=== PATIENT | male | born 1965 | race Caucasian/White ===

== ENCOUNTER 2022-12-09 08:31 | Outpatient (RCR) | payer OTHER ==
[~2022-12-09 08:31] MED LIST: ACHD5005 PO; AMLO-250 PO; AMLO-251 PO; ASPI-999 PO; BETA1TAB PO; BLOO1EAC87 MC; CEPH500C PO; CLIN150C20 PO; CLOP75TA28 PO; CYAN100015 SL; DEXA4TAB PO; DOCU100C37 PO; DOCU100T2 PO; FURO20TA4 PO; HYDR-1231 PO; IBUP-2473 PO; INSU100I14 SQ; INSU100I88 SQ; LACT1CAP62 PO; LANC1COM6 MC; LEVE500T6 PO; LOSA100T58 PO; MECO10002 SL; METF-397 PO; NAPR220T66 PO; OLAN5TAB3 PO; OMEP-10 PO; OMEP20CA18 PO; OXYC-556 PO; PROBIOTIC; QUET25TA35 PO; [UNRECOGNIZED DRUG - CODE] MC; [UNRECOGNIZED DRUG - CODE] MC
== END 2022-12-13 | disposition home or self-care (01) ==
LOC: ONC 08:31 → MERGE 08:31
PROVIDERS: ATTEND Internal Medicine Hematology & Oncology
DX: Z51.0 Encounter for antineoplastic radiation therapy (principal); C64.9 Malignant neoplasm of unspecified kidney, except renal pelvis; I87.2 Venous insufficiency (chronic) (peripheral)
CPT/HCPCS: 77336; 77373; G0463

== ENCOUNTER 2022-12-09 11:40 | Observation (INO) | payer OTHER ==
[~2022-12-09] VITALS: Ht 175 cm; Wt 113.0 kg
[2022-12-09 12:15] LABS: BASOPHILS % (AUTO) 0 % (0-10); EOSINOPHILS % (AUTO) 0 % (0-10); HEMATOCRIT 39 % (40-54); HEMOGLOBIN 13.2 g/dL (13.3-17.7); LYMPHOCYTES # (AUTO) 1.1 10^3/uL (1.0-4.0); LYMPHOCYTES % (AUTO) 9 % (12-44); MEAN CORPUSCULAR HEMOGLOBIN 31 pg (25-34); MEAN CORPUSCULAR HGB CONC 34 g/dL (32-36); MEAN CORPUSCULAR VOLUME 91 fL (80-99); MONOCYTES # (AUTO) 0.8 10^3/uL (0.0-1.0); MONOCYTES % (AUTO) 6 % (0-12); NEUTROPHILS # (AUTO) 9.8 10^3/uL (1.8-7.8); NEUTROPHILS % (AUTO) 79 % (42-75); PLATELET COUNT 247 10^3/uL (130-400); WHITE BLOOD COUNT 12.4 10^3/uL (4.3-11.0)
[2022-12-09] MEDS ORDERED: dexAMETHasone INJ 10 MG/ML 1 ML VIAL IV ONE (12:15)
[2022-12-09 12:41] LABS: ALBUMIN 3.8 GM/DL (3.2-4.5); POTASSIUM 4.3 MMOL/L (3.6-5.0)
[2022-12-09 12:42] LABS: CALCIUM 9.3 MG/DL (8.5-10.1)
[2022-12-09 12:43] LABS: TOTAL PROTEIN 7.2 GM/DL (6.4-8.2)
[2022-12-09 12:45] LABS: BILIRUBIN,TOTAL 0.5 MG/DL (0.1-1.0)
[2022-12-09 12:47] LABS: CREATININE SERUM 0.97 MG/DL (0.60-1.30)
[2022-12-09 12:50] LABS: MAGNESIUM 2.2 MG/DL (1.6-2.4)
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
[2022-12-09 13:10] LABS: TSH (THYROID ANALYZER) 1.07 UIU/ML (0.35-4.94)
[2022-12-09] MEDS ORDERED: OLANZapine 5 MG ODT TABLET PO ONE (14:00)
[2022-12-09] MEDS ORDERED: ONDANSETRON INJECTION 4 MG/2 ML (SDV) IVP PRN (18:00)
[2022-12-09] MEDS ORDERED: GLYCOPYRROLATE INJ 0.2 MG/ML 2 ML VIAL IV PRN (18:00)
[2022-12-09] MEDS ORDERED: RT-Ipratropium/Albuterol NEB 3 ML VIAL INH PRN (18:00)
[2022-12-09] MEDS ORDERED: ACETAMINOPHEN 650 MG SUPPOSITORY PR PRN (18:00)
[2022-12-09] MEDS ORDERED: SALIVA SUBSTITUTE 60 ML SPRAY MM PRN (18:00)
[2022-12-09] MEDS ORDERED: PROMETHAZINE INJ 25 MG/ML VIAL IVP PRN (18:00)
[2022-12-09] MEDS ORDERED: LORazepam 1 MG TABLET SL PRN (18:00)
[2022-12-09] MEDS ORDERED: BISACODYL 10 MG SUPPOSITORY PR PRN (18:00)
[2022-12-09] MEDS ORDERED: ARTIFICIAL TEARS Ophth solution 0.4 ML UNIT DOSE OU PRN (18:00)
[2022-12-09] MEDS: WATER (STERILE) FOR INJ 10 ML BTL INJ SCH (18:35)
[2022-12-09] MEDS: ZIPRASIDONE INJECTION 20 MG VIAL IM PRN (18:35)
[2022-12-09 20:22] VITALS: BP 140/77
[2022-12-09] MEDS: inSUlin ASPART 1 UNIT/0.01 ML (PER UNIT) SC SCH ×2 (20:58)
[2022-12-09] MEDS: dexAMETHasone 4 MG TABLET PO SCH (21:00)
[2022-12-09] MEDS ORDERED: OLANZapine 5 MG ODT TABLET PO SCH (21:00)
[2022-12-09] MEDS: LevETIRAcetam 500 MG TABLET PO SCH (21:00)
[2022-12-09] MEDS ORDERED: inSUlin DETERMIR 1 UNIT/0.01 ML (CHARGE PER UNIT) SQ SCH (21:00)
[2022-12-09] MEDS ORDERED: QUEtiapine IMMEDIATE RELEASE 25 MG TABLET PO SCH (21:00)
[2022-12-10 00:41] VITALS: BP 169/91
[2022-12-10] MEDS: ZIPRASIDONE INJECTION 20 MG VIAL IM PRN ×3 (01:20→14:15)
[2022-12-10] MEDS: WATER (STERILE) FOR INJ 10 ML BTL INJ SCH (01:20)
[2022-12-10 03:14] VITALS: BP 168/89
[2022-12-10] MEDS: inSUlin ASPART 1 UNIT/0.01 ML (PER UNIT) SC SCH ×5 (06:37→16:12)
[2022-12-10 08:00] VITALS: BP 192/89
[2022-12-10] MEDS: dexAMETHasone 4 MG TABLET PO SCH ×3 (08:00→15:43)
[2022-12-10] MEDS: LevETIRAcetam 500 MG TABLET PO SCH (08:00)
[2022-12-10] MEDS ORDERED: ASPIRIN enteric coated 81MG TABLET PO SCH (09:00)
[2022-12-10] MEDS ORDERED: CLOPIDOGREL 75 MG TABLET PO SCH (09:00)
[2022-12-10] MEDS ORDERED: ALPRAZolam 0.5 MG TABLET PO SCH (09:00)
[2022-12-10] MEDS: morphine INJ 4 MG/ML 1 ML (VIAL/SYRINGE) IV PRN ×3 (09:00→15:09)
[2022-12-10] MEDS ORDERED: HALOPERIDOL INJECTION 5 MG/ML VIAL IM NR ×3 (10:00→15:15)
[2022-12-10 12:00] VITALS: BP 189/89
[2022-12-10] MEDS ORDERED: SCOPOLAMINE 1.5 MG PATCH TD NR (12:30)
[2022-12-10] MEDS ORDERED: LIDOCAINE UROJET 2% GEL 10 ML PKG TOP ONE (12:30)
[2022-12-10] MEDS ORDERED: HALOPERIDOL INJECTION 5 MG/ML VIAL IM PRN (14:30)
[2022-12-10 15:29] VITALS: BP 178/88
--- NOTE | 2022-12-10 16:31 | Short Stay Summary-Hospitalist ---
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 He has undergone radiation and chemotherapy. He has been on high dose dexamethasone. Despite the treatment his cancer has progressed. He saw his oncologist yesterday and they recommended hospice care. He returned home and appartently tried to harm himself. He tried to get his to leave the house but she would not. He tried to get into a gun safe but his son stopped him. Police were called and came to the home. They then brought him to the ER. He has denied suicidal ideation. Upon my exam, he has slurred speech. He repeatedly says he wants to go to home. He is labile and irritable. He keeps trying to stand up to leave. Source: patient, family Exam Limitations: clinical condition Date Seen 12/10/22 Time Seen by a Provider: 10:00 Attending Physician Cayetano Bradley MD PCP Admitting Physician: Roberto Miramontes MD Attending Physician: Roberto Miramontes MD Referring Physician Date of Admission Dec 09, 2022 at 17:44 Home Medications & Allergies Home Medications Reviewed patient Home Medication Reconciliation performed by pharmacy medication reconciliations geophysical data technician and/or nursing. Patients Allergies have been reviewed. Allergies Allergies Coded Allergies No Known Drug Allergies (Gptrvcvuoo38/12/23) Past Shhgjta-Yirdui-Joncmx Hx Patient Social History Tobacco Use?: No Substance use?: No Alcohol Use?: No Additional Alcohol Comments: UNABLE TO OBTAIN. Current Status Advance Directives: Unable to obtain Communicates: Verbally Primary Language: Upper Sorbian Preferred Spoken Language: Upper Sorbian Is interpretation needed?: No Past Medical History Brain, Lung, Kidney Did You Recieve Any Treatments: Yes What Type of Treatment Did You: Chemotherapy, Radiation, Surgical Intervention Family Medical History No Pertinent Family Hx Chart to be merged with previous chart. History reviewed from other charts. Review of Systems Constitutional: see HPI Psychiatric/Neurological: Anxiety, Depressed Physical Exam Physical Exam Vital Signs Vital Signs - First Documented 12/09/22 12/09/22 11:40 18:00 Temp 37.0 Pulse 80 Resp 16 B/P (MAP) 202/119 (146) Pulse Ox 93 O2 Delivery Room Air O2 Flow Rate 2.00 Capillary Refill : Less Than 3 Seconds Height, Weight, BMI Height: '" Weight: lbs. oz. kg; 36.89 BMI Method: General Appearance: Anxious, Mild Distress, Obese Respiratory: No Respiratory Distress, Crackles (Mid lung on right) Cardiovascular: Regular Rate, Rhythm, No Murmur Gastrointestinal: Non Tender, Soft, Distended Extremity: Normal Inspection Neurologic/Psychiatric: Alert, Depressed Affect, Other (irritable, labile, not easily redirectable) Skin: Cool, Pallor (feet) Results Results/Procedures Labs Laboratory Tests 12/09/22 12:06 Patient resulted labs reviewed. Short Stay Diagnosis Discharge Diagnosis-Short Stay Admission Diagnosis Metastatic renal cell carcinoma to the brain Final Discharge Diagnosis Metastatic renal cell carcinoma to the brain Conclusion Plan Metastatic renal cell carcinoma to the brain Anxiety Agitation T2DM with hyperglycemia Steroid induced hyperglycemia Poor prognosis Given Ativan, Haldol, Geodon, Morphine without significant improvement Discussed care with , Alycia, recommended [facility] hospice for symptom management [facility] accepted for [facility] Discharge to [facility] hospice for uncontrolled symptoms related to metastatic cancer Diagnosis/Problems Diagnosis/Problems (1) Metastatic renal cell carcinoma to brain Status: Acute (2) Anxiety Status: Acute (3) Agitation Status: Acute (4) T2DM (type 2 diabetes mellitus) Status: Acute Qualifiers: Qualified Codes: E11.65 - Type 2 diabetes mellitus with hyperglycemia; Z79.4 - vermin exterminator (current) use of insulin (5) Steroid-induced hyperglycemia Status: Acute (6) Poor prognosis Status: Acute ROBERTO MIRAMONTES MD Dec 10, 2022 16:31
== END 2022-12-10 16:03 | disposition other institution (70) ==
LOC: ER 11:42 → EDBD 11:42 → UNDOADMOB 17:44 → 4TH 17:44 → UNDODISOB 12-10 16:11
PROVIDERS: ADMIT Internal Medicine; ATTEND Internal Medicine
DX: C64.9 Malignant neoplasm of unspecified kidney, except renal pelvis (principal); C78.00 Secondary malignant neoplasm of unspecified lung; C79.31 Secondary malignant neoplasm of brain; R45.1 Restlessness and agitation; E11.65 Type 2 diabetes mellitus with hyperglycemia; F41.9 Anxiety disorder, unspecified
CPT/HCPCS: 80053; 82947 ×2; 83735; 84443; 85025; 86141; 93005; 96372 ×2; 96375; 96376; 99284; G0378; 36415; 96374

== ENCOUNTER 2022-12-10 14:44 | Inpatient (IN) | payer OTHER ==
[~2022-12-10] VITALS: Ht 175 cm; Wt 113.0 kg
[2022-12-10] MEDS ORDERED: HALOPERIDOL INJECTION 5 MG/ML VIAL IM PRN (16:15)
[2022-12-10] MEDS ORDERED: RT-Ipratropium/Albuterol NEB 3 ML VIAL INH PRN (16:15)
[2022-12-10] MEDS ORDERED: ARTIFICIAL TEARS Ophth solution 0.4 ML UNIT DOSE OU PRN (16:15)
[2022-12-10] MEDS ORDERED: BISACODYL 10 MG SUPPOSITORY PR PRN (16:15)
[2022-12-10] MEDS ORDERED: morphine INJ 4 MG/ML 1 ML (VIAL/SYRINGE) IV PRN (16:15)
[2022-12-10] MEDS ORDERED: PROMETHAZINE INJ 25 MG/ML VIAL IVP PRN (16:15)
[2022-12-10] MEDS ORDERED: SALIVA SUBSTITUTE 60 ML SPRAY MM PRN (16:15)
[2022-12-10] MEDS ORDERED: LIDOCAINE UROJET 2% GEL 10 ML PKG TOP ONE (16:15)
[2022-12-10] MEDS ORDERED: ONDANSETRON INJECTION 4 MG/2 ML (SDV) IVP PRN (16:15)
[2022-12-10] MEDS ORDERED: ACETAMINOPHEN 650 MG SUPPOSITORY PR PRN (16:15)
--- OUTSIDE RECORDS SUMMARY | 2022-12-10 16:27 | XMS REPORT | Encounter Summary ---
Author Author [facility] Organization [facility] Address Unknown Phone Unavailable Care Team Providers Care Joiner Apprentice Name Role Phone Cayetano Bradley MD PCP Reason for Visit * Auth/Cert (Routine) Specialty Diagnoses / Procedures Referred By Contac t Referred To Contact Diagnoses Lung nodule LAD (lymphadenopathy), hilar Paratracheal lymphadenopathy Lung nodule [R91.1] LAD (lymphadenopathy), hilar [R59.0] Paratracheal lymphadenopathy [R59.0] Procedures [facility] INCL FLUOR GDNCE DX W/CELL WASHG SPX IL BRONCHOSCOPY W/TRANSBRONCHIAL LUNG BX 1 LOBE IL BRONCHOSCOPY NEEDLE BX TRACHEA MAIN STEM&/[facility] 3/> NODE STATION/STRUX FLEXIBLE BRONCHOSCOPY DIAGNOSTIC WITH/ WITHOUT CELL WASHING - FLEXIBLE BRONCHOSCOPY WITH TRANSBRONCHIAL LUNG BIOPSY - FLEXIBLE - SINGLE LOBE BRONCHOSCOPY WITH TRANSBRONCHIAL NEEDLE ASPIRATION AND BIOPSY TRACHEA/ MAIN STEM/ LOBAR BRONCHUS - FLEXIBLE BRONCHOSCOPY WITH ENDOBRONCHIAL ULTRASOUND GUIDED TRANSTRACHEAL/ TRANSBRONCHIAL SAMPLING - 3 OR MORE MEDIASTINAL/ HILAR LYMPH NODE STATIONS/ STRUCTURE - FLEXIBLE Referral ID Status Reason Start Date Expiration Date Visits Re quested Visits Authorized [id number] 1 1 Encounter Details Date Type Department Care Team Description 10/01/2022 2:53 PM CDT Anesthesia Event Operating Room: [facility] [address] [facility] [address] [place] [address] Betsey Rivas MD [address] [facility] [place] [address] Anesthesia Record Procedure Summary Procedure Name Responsible Anesthesiologist Anesthesia Start Time Anesthesia Stop Time FLEXIBLE BRONCHOSCOPY DIAGNOSTIC WITH/ WITHOUT CELL WASHING - FLEXIBLE (Bron[place]) Betsey Rivas MD 10/01/22 1453 10/01/22 1543 Events Date Time Event Comment 10/01/2022 1450 1450 AN Equip Check 1452 Out of Pre Procedure 1453 Anes Start 1455 In Room 1455 An Start Data 1500 An Induction The patient was reevaluated immediately before moderate or deep sedation use and before anesthesia induction. 1504 An Intubation 1507 Anesthesia Ready 1508 Proc Start 1536 An Extubation 1540 an stop data 1543 An Stop I completed my SBAR handoff to the receiving nurse. Meds * Agents Name O2 N2O Inspired N2O * Blood No blood administrations on file. Lines, Drains, and Airways Type Details Placement Removal Epidural Catheter 07/13/17; 0718 (crecarmen britt via procedure documentation) 07/13/17 0718 by Jax Barrera DO Peripheral IV 10/01/22; 1435; R; Posterior; Hand; 20 G; One; 10/01/22; 1745 10/01/22 1435 by Nita Castillo, DARIAN 10/01/22 1745 by Nancie Middleton, DARIAN ETT 10/01/22; 1504; Ventilated by mask with oral airway (2); Video laryngoscopy, Stylet; Single-Lumen, Cuffed; ETT Size: 8.5mm; GlideScope; Blade Size: 4; Cricoid Pressure: No; Oral; 1-Full view of the glottis; 1 insertion attempt; Auscultation, ETCO2 Detector; Vol of Air in Cuff: 9 mL; Taped at Gums: 22 centimeters; Atraumatic. Dentition and mucosa unchanged.; 10/01/22; 1536 10/01/22 1504 by César Cuevas SRNA 10/01/22 1536 by César Cuevas SRNA documented in this encounter Social History Tobacco Use Types Packs/Day Years Used Date Smoking Tobacco: Never Smokeless Tobacco: Never Alcohol Use Standard Drinks/Week Comments Yes 0 (1 standard drink = 0.6 oz pure alcohol) 2-3 times weekly, vodka and cranberry Alcohol Use Answer Date Recorded Alcohol Use Yes Male: 9+ ounces (15+ Standard Drinks) per week T hreshold 0 Female: 4.8+ ounces (8+ Standard Drinks) per wee k Threshold Not on file Sex and Gender Information Value Date Recorded Sex Assigned at Male 09/23/2022 9:10 AM CDT Gender Identity Male 09/23/2022 9:10 AM CDT Sexual Orientation Not on file COVID-19 Exposure Response Date Recorded In the last 10 days, have yo u been in contact with someone who was confirmed or suspected to have Coronavirus/COVID-19? No / Unsure 10/01/2022 2:30 PM CDT documented as of this encounter Functional Status Functional Status Response Date of Assess ment Does the patient have a hearing impairment: No 07/29/2017 Does the patient have a visual impairment: No 07/29/2017 Does the patient have impaired ambulation: No 07/29/2017 Does the patient have an act ivity of daily living (ADL) impairment: No 07/29/2017 Does the patient have an ins trumental activity of daily living (IADL) impairment: No 07/29/2017 Cognitive Status Response Date of Assessm ent Does the patient have a cognitive impairment: No 07/29/2017 documented as of this encounter OR Notes * Anesthesia Postprocedure Evaluation - Tati Magdaleno MD - 10/01/2022 5:40 PM CDT Post-Anesthesia Evaluation Name: Kayode Milian : 1965 Age: 57 y.o. Sex: male Procedure Information Anesthesia Start Date/Time: 10/01/22 1450 Procedures: FLEXIBLE BRONCHOSCOPY DIAGNOSTIC WITH/ WITHOUT CELL WASHING - FLEXIBLE ([place]) BRONCHOSCOPY WITH TRANSBRONCHIAL LUNG BIOPSY - FLEXIBLE - SINGLE LOBE ([place]chus) BRONCHOSCOPY WITH TRANSBRONCHIAL NEEDLE ASPIRATION AND BIOPSY TRACHEA/ MAIN STEM/ LOBAR BRONCHUS - FLEXIBLE ([place]) BRONCHOSCOPY WITH ENDOBRONCHIAL ULTRASOUND GUIDED TRANSTRACHEAL/ TRANSBRONCHIAL SAMPLING - 3 OR MORE MEDIASTINAL/ HILAR LYMPH NODE STATIONS/ STRUCTURE - FLEXIBLE (Bronchus) Location: PULM ROOM / Main OR/Periop Surgeons: Negrito Pelaez MD Post-Anesthesia Vitals BP: 122/69 (10/01 1729) Temp: 36.7 C (98 F) (10/01 1729) Pulse: 68 (10/01 1729) Respirations: 12 PER MINUTE (10/01 1729) SpO2: 96 % (10/01 1729) SpO2 Pulse: 68 (10/01 1729) O2 Device: None (Room air) (10/01 1729) Vitals Value Taken Time BP 122/69 10/01/22 1730 Temp 36.7 C (98 F) 10/01/22 173 Pulse 68 10/01/220 Respirations 12 PER MINUTE 10/01/221729 SpO2 96 % 10/01/221729 O2 Device None (Room air) 10/01/221729 ABP ART BP Post Anesthesia Evaluation Note Evaluation location: Pre/Post Patient participation: recovered; patient participated in evaluation Level of consciousness: alert Pain score: 0 Pain management: adequate Hydration: normovolemia Temperature: 36.0C - 38.4C Airway patency: adequate Perioperative Events Post-op nausea and vomiting: no PONV Postoperative Status Cardiovascular status: hemodynamically stable Respiratory status: spontaneous ventilation Follow-up needed: none Perioperative Events There were no known notable events for this encounter. Associated attestation - Ross Frankel MD - 10/04/2022 6:55 AM CDT ATTESTATION Post-Anesthesia Evaluation Attestation: I reviewed and agree the indicated post- anesthesia care wasprovided. I have reviewed tomlinson portions of the indicated post anesthesia care. I have examined the patient's vitals, physical status, and complications and agree with what is documented. Staff name: Ross Frankel MD Date: 10/04/2022 * Anesthesia Preprocedure Evaluation - Betsey Rivas MD - 10/01/2022 2:09 PM CDT Images from the original note were not included. Anesthesia Pre-Procedure Evaluation Name: Kayode Milian : 1965 Age: 57 y.o. Sex: male Procedure Date: 10/01/2022 Procedure: Procedure(s): FLEXIBLE BRONCHOSCOPY DIAGNOSTIC WITH/ WITHOUT CELL WASHING - FLEXIBLE BRONCHOSCOPY WITH TRANSBRONCHIAL LUNG BIOPSY - FLEXIBLE - SINGLE LOBE BRONCHOSCOPY WITH TRANSBRONCHIAL NEEDLE ASPIRATION AND BIOPSY TRACHEA/ MAIN STEM/ LOBAR BRONCHUS - FLEXIBLE BRONCHOSCOPY WITH ENDOBRONCHIAL ULTRASOUND GUIDED TRANSTRACHEAL/ TRANSBRONCHIAL SAMPLING - 3 OR MORE MEDIASTINAL/ HILAR LYMPH NODE STATIONS/ STRUCTURE - FLEXIBLE Physical Assessment Vital Signs (last filed in past 24 hours): BP: 168/123 (10/01 1425) Temp: 36.5 C (97.7 F) (10/02 1415) Pulse: 75 (10/01 1425) Respirations: 15 PER MINUTE (10/01 1425) SpO2: 96 % (10/01 1425) O2 Device: None (Room air) (10/01 1425) SpO2 Pulse: 76 (10/01 1425) Height: 175.3 cm (5' 9") (10/02 1415) Repeat BP 199/96 Patient History No Known Allergies Current Medications Medication Directions acetaminophen (TYLENOL) 325 mg tablet Take 2 tablets by mouth every 4 hours as needed for Pain. amLODIPine (NORVASC) 5 mg tablet Take 5 mg by mouth daily. cetirizine (ZYRTEC) 10 mg tablet Take 10 mg by mouth daily. lisinopril (PRINIVIL; ZESTRIL) 10 mg tablet Take 10 mg by mouth daily. losartan(+) (COZAAR) 100 mg tablet Take 100 mg by mouth daily. omeprazole DR(+) (PRILOSEC) 20 mg capsule Take 20 mg by mouth daily before breakfast. Social History Socioeconomic History Marital status: Tobacco Use Smoking status: Never Smokeless tobacco: Never Substance and Sexual Activity Alcohol use: Yes Comment: 2-3 times weekly, vodka and cranberry Drug use: No Medical History: Diagnosis Date Acid reflux Hypertension Renal mass, right Ulcer of esophagus Surgical History: Procedure Laterality Date OPEN RIGHT RADICAL NEPHRECTOMY (MIDLINE) Right 07/13/2017 Performed by Gil Liu MD at [facility] OR FLEXIBLE CYSTOSCOPY N/A 07/13/2017 Performed by Gil Liu MD at [facility] OR OPEN REPAIR HERNIA UMBILICAL WITH MESH N/A 07/13/2017 Performed by Johnny Alvarez MD at [facility] OR Review of Systems/Medical History Patient summary reviewed Nursing notes reviewed Pertinent labs reviewed PONV Screening: Non-smoker and Hx PONV/motion sickness History of anesthetic complications (PONV) No family history of anesthetic complications Airway - negative Pulmonary Lung nodule, paratracheal/hilar LAD Pt snores, denies PND or orthopnea. No formal sleep study. reports episodes of apnea up to 15 seconds. Denies day time drowsiness. Cardiovascular Exercise tolerance: >4 METS (Pt is able to climb 2 flights of stairs without CP or dyspena. ) Beta Keri therapy: No Beta blockers within 24 hours: n/a Hypertension (Lisinopril and Norvasc), well controlled Hyperlipidemia (recently dx. ) Orthopnea Deneis CP, SYKES, palpitations, syncope, PND or orthopnea. GI/Hepatic/Renal GERD (on PPI), well controlled Liver disease (hepatic steatosis per CT 04/2017): Renal disease (right renal mass s/p nephrectomy 2017): prior nephrectomy Umbilical hernia H/o esophageal ulcer ~15 years ago. 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 Musculoskeletal Back pain (low back ) Arthritis (hands ): Endocrine/Other Malignancy (R RCC s/p nephrectomy; brain lesions recently irradiated): Obesity Constitution - negative Physical Exam Airway Findings Mallampati: III TM distance: <3 FB Neck ROM: full Mouth opening: good Airway patency: adequate Comments: Thick neck Dental Findings: Poor dentition and increased risk for dental injury; pt advised Comments: Multiple broken teeth, including lower R molar, upper L molar Cardiovascular Findings: Negative Rhythm: regular Rate: normal Pulmonary Findings: Negative Breath sounds clear to auscultation. Abdominal Findings: Obese Abdomen soft Neurological Findings: Alert and oriented x 3 Constitutional findings: No acute distress Diagnostic Tests Hematology: Lab Results Component Value Date HGB 14.6 01/09/2018 HCT 41.8 01/09/2018 PLTCT 351 01/09/2018 WBC 11.0 01/09/2018 MCV 96.8 01/09/2018 MCH 33.7 01/09/2018 MCHC 34.8 01/09/2018 MPV 7.4 01/09/2018 RDW 13.0 01/09/2018 General Chemistry: Lab Results Component Value Date NA 132 07/10/2018 K 4.2 07/10/2018 CL 100 07/10/2018 CO2 25 07/10/2018 GAP 7 07/10/2018 BUN 18 07/10/2018 CR 1.2 07/10/2018 CR 1.19 07/10/2018 GLU 217 07/10/2018 CA 9.1 07/10/2018 ALBUMIN 3.9 07/10/2018 TOTBILI 0.4 07/10/2018 Coagulation: Lab Results Component Value Date PTT 34.3 06/20/2017 INR 1.0 06/20/2017 Anesthesia Plan ASA score: 3 Plan: general Induction method: intravenous NPO status: acceptable Informed Consent Anesthetic plan and risks discussed with patient. Use of blood products discussed with patient Blood Consent: consented Plan discussed with: anesthesiologist, SCIENTIST ENGINEER, SRNA and surgeon/proceduralist. PAC Plan Alerts documented in this encounter Plan of Treatment Not on file documented as of this encounter Visit Diagnoses * Addendum Note - Betsey Rivas MD - 10/01/2022 5:56 PM CDT Addendum created 10/01/221755 by Betsey Rivas MD Review and Sign - Ready for Procedure documented in this encounter Administered Medications Inactive Administered Medications Medication Order MAR Action Action Date Dose Rate Site artificial tears (PF) single dose ophthalmic solution Both Eyes, INTRA-PROCEDURE MED, Starting on Tue10/01/22 at 1504, Until Tue10/01/22 at 1545, Anesthesia Intra-op Given 10/01/2022 3:04 PM CDT 2 drops dexamethasone sodium phosphate (DECADRON PHOSPHATE) injection Intravenous, INTRA-PROCEDURE MED, Starting on Tue10/01/22 at 1514, Until Tue10/01/22 at 1545, Anesthesia Intra-op Given 10/01/2022 3:14 PM CDT 4 mg fentaNYL citrate PF (SUBLIMAZE) injection Intravenous, INTRA-PROCEDURE MED, Starting on Tue10/01/22 at 1500, Until Tue10/01/22 at 1545, Anesthesia Intra-op Given 10/01/2022 3:00 PM CDT 50 mcg lidocaine (PF) injection Intravenous, INTRA-PROCEDURE MED, Starting on Tue10/01/22 at 1500, Until Tue10/01/22 at 1545, Anesthesia Intra-op Given 10/01/2022 3:00 PM CDT 100 mg midazolam (VERSED) injection Intravenous, INTRA-PROCEDURE MED, Starting on Tue10/01/22 at 1455, Until Tue10/01/22 at 1545, Anesthesia Intra-op Given 10/01/2022 2:55 PM CDT 2 mg ondansetron HCL (PF) (ZOFRAN (PF)) injection Intravenous, INTRA-PROCEDURE MED, Starting on Tue10/01/22 at 1514, Until Tue10/01/22 at 1545, Anesthesia Intra-op Given 10/01/2022 3:14 PM CDT 4 mg propofoL (DIPRIVAN) infusion 100 mL, Intravenous, INTRA-PROCEDURE MED(CONT), Starting on Tue10/01/22 at 1500, Until Tue10/01/22 at 1545, Anesthesia Intra-op Dose/Rate Change 10/01/2022 3:20 PM CDT 50 mcg/kg/min 35.52 mL/hr documented in this encounter Additional Health Concerns Assessment Noted Time A fall risk assessment has been complete d for the patient 10/01/2022 2:46 PM CDT documented as of this encounter Care Teams Joiner Apprentice Relationship Specialty Start Date End Date Cayetano Bradley MD [address] [place] [id number] PCP - General Family Medicine 10/01/22 documented as of this encounter
--- OUTSIDE RECORDS SUMMARY | 2022-12-10 16:27 | XMS REPORT | Encounter Summary ---
Author Author [facility] Organization [facility] Address Unknown Phone Unavailable Care Team Providers Care Copy Clerk Name Role Phone Cayetano Bradley MD PCP Reason for Visit * Reason Onset Date Comments Results 10/05/2022 Encounter Details Date Type Department Care Team Description 10/05/2022 Telephone Pulmonology: [facility] [address], [address] [id number] Xavi Ye MD [address] [place], [place] [id number] Results Social History Tobacco Use Types Packs/Day Years [...] No 07/29/2017 documented as of this encounter Miscellaneous Notes * Telephone Encounter - Xavi Ye MD - 10/05/2022 9:07 AM CDT Called Mr. Milian at 10/05/22 0900 regarding results of lung 4R FNA w/ renal cancer. Mr. Milian is established with Dr. Bandar MD (medical oncologist) and has an appointment tomorrow at 230pm. Answered all questions. documented in this encounter Plan of Treatment Not on file documented as of this encounter Visit Diagnoses Not on filedocumented in this encounter Additional Health Concerns Assessment Noted Time A fall risk assessment has been complete d for the patient 10/01/2022 2:46 PM CDT documented as of this encounter Care Teams Copy Clerk Relationship Specialty Start Date End Date Cayetano Bradley MD [address] [place] [phone] PCP - General Family Medicine 10/01/22 documented as of this encounter
--- OUTSIDE RECORDS SUMMARY | 2022-12-10 16:27 | XMS REPORT | Encounter Summary ---
Author Author [facility] Organization [facility] Address Unknown Phone Unavailable Care Team Providers Care New Car Sales Manager Name Role Phone Cayetano Bradley MD PCP Reason for Referral * Radiology Services (Routine) - New Request Specialty Diagnoses / Procedures Referred By Contac t Referred To Contact Radiology Diagnoses PVD (peripheral vascular disease) (HCC) Procedures VAS US NONINVASIVE LOWER EXT PVR Radha Martin APRN-NP [id number], [address] [place] [phone] Referral ID Status Reason Start Date Expiration Date V isits Requested Visits Authorized [id number] New Request 11/29/2022 11/30/2023 1 1 Reason for Visit * Radiology Services (Routine) - New Request Specialty Diagnoses / Procedures Referred By Contac t Referred To Contact Radiology Diagnoses PVD (peripheral vascular disease) (HCC) Procedures VAS US NONINVASIVE LOWER EXT PVR Radha Martin APRN-NP [id number], [address] [place] [address] Referral ID Status Reason Start Date Expiration Date V isits Requested Visits Authorized [id number] New Request 11/29/2022 11/30/2023 1 1 Encounter Details Date Type Department Care Team Description 11/30/2022 9:50 AM CDT - 11/30/2022 11:59 PM CDT [facility] [address] [place] [phone] Radha Martin, REVENUE SETTLEMENTS ADMINISTRATOR-SKEIN INSPECTOR [address], [address] [place] [phone] Discharge Disposition: Home or Self Care Social History Tobacco Use Types Packs/Day Years Used Date Smoking Tobacco: Never Smokeless Tobacco: Never Alcohol Use Standard Drinks/Week Comments Yes 0 (1 standard drink = 0.6 oz pure alcohol) 2-3 times weekly, vodka and cranberry PHQ-2 Answer Date Recorded PHQ-2 Score 0 11/30/2022 Alcohol Use Answer Date Recorded Alcohol Use Yes Male: 9+ ounces (15+ Standard Drinks) per week T hreshold 0 Female: 4.8+ ounces (8+ Standard Drinks) per wee k Threshold Not on file Sex and Gender Information Value Date Recorded Sex Assigned at Male 09/23/2022 9:10 AM CDT Gender Identity Male 09/23/2022 9:10 AM CDT Sexual Orientation Not on file documented as of this encounter Functional Status Functional Status Response Date of Assess ment Does the patient have a hearing impairment: No 11/30/2022 Does the patient have a visual impairment: No 11/30/2022 Does the patient have impaired ambulation: No 11/30/2022 Does the patient have an act ivity of daily living (ADL) impairment: No 11/30/2022 Does the patient have an ins trumental activity of daily living (IADL) impairment: No 11/30/2022 Cognitive Status Response Date of Assessm ent Does the patient have a cognitive impairment: No 11/30/2022 documented as of this encounter Medications at Time of Discharge Medication Sig Dispensed Refills Start Date End Date acetaminophen (TYLENOL) 325 mg tablet Take 2 tablets by mouth every 4 hours as needed for Pain. 0 07/16/2017 aspirin EC (ASPIR-LOW) 81 mg tabletIndications:PVD (peripheral vascular disease) (HCC) Take one tablet by mouth daily. 90 tablet 3 11/30/2022 BD ULTRA-FINE SHORT PEN NEEDLE 31 gauge x 5/16" pen needle 0 10/20/2022 cetirizine (ZYRTEC) 10 mg tablet Take one tablet by mouth daily. 0 clopiDOGreL (PLAVIX) 75 mg tabletIndications:PVD (peripheral vascular disease) (HCC) Take one tablet by mouth daily. 90 tablet 3 11/30/2022 dexAMETHasone (DECADRON) 4 mg tablet Take one tablet by mouth. Take with food. 0 furosemide (LASIX) 20 mg tablet 0 11/22/2022 HYDROcodone/acetaminophe n (NORCO) 5/325 mg tablet 0 11/26/2022 ibuprofen (ADVIL) 200 mg tablet Take one tablet by mouth every 6 hours as needed for Pain. Take with food. 0 insulin aspart (U-100) (NOVOLOG FLEXPEN U-100 INSULIN) 100 unit/mL (3 mL) PEN 0 10/20/2022 levETIRAcetam (KEPPRA) 500 mg tablet 0 11/22/2022 lisinopril (PRINIVIL; ZESTRIL) 10 mg tablet Take one tablet by mouth daily. 0 losartan(+) (COZAAR) 100 mg tablet Take one tablet by mouth daily. 0 metFORMIN (GLUCOPHAGE) 500 mg tablet 0 11/22/2022 OLANZapine (ZYPREXA) 5 mg tablet [address](+) (PRILOSEC) 20 mg capsule Take one capsule by mouth daily before breakfast. 0 ONETOUCH DELICA PLUS LANCET 33 gauge 0 10/19/2022 documented as of this encounter Discharge Disposition Disposition Code Departure Means Destination Home or Self Intermediate documented in this encounter Plan of Treatment Not on file documented as of this encounter Procedures Procedure Name Priority Date/Time Associated Diagnosis Comments VAS US NONINVASIVE LOWER EXT PVR Routine 11/30/2022 12:02 PM CDT PVD (peripheral vascular disease) ([facility]) documented in this encounter Results * VAS US NONINVASIVE LOWER EXT PVR (11/30/2022 12:02 PM CDT) Anatomical Region Laterality Modality Lower Extremity Ultrasound 11/30/2022 12:0 2 PM CDT Impressions 11/30/2022 12:02 PM CDT Right: Analog waveforms are triphasic at the common femoral, superficial femoral, popliteal, posterior tibial and dorsalis pedis arteries. PPG tracing is biphasic at the great toe. Ankle/brachial index is 1.21. Toe/brachial index is 1.10. No previous with which to compare. Left: Analog waveforms are triphasic at the common femoral, superficial femoral, and popliteal arteries. Analog waveforms are monophasic at the posterior tibial and dorsalis pedis arteries. PPG tracing is monophasic at the great toe. Ankle/brachial index is 0.47. Toe/brachial index is 0.28. No previous with which to compare. Recommendations: Would consider conventional angiogram or CT angiogram to better determine the severity of the stenosis as clinically indicated. Narrative 11/30/2022 12:02 PM CDT Conclusions: There is no indication of significant arterial insufficiency in the right lower extremity. Ankle/brachial indices and monophasic analog waveforms indicate severe arterial insufficiency at the left tibial level. Procedure Note Grisel Maher MD - 11/30/2022 Conclusions: There is no indication of significant arterial insufficiencyin the right lower extremity. Ankle/brachial indices and monophasic analog waveforms indicate severearterial insufficiency at the left tibial level. IMPRESSION Right: Analog waveforms are triphasic at the common femoral, superficialfemoral, popliteal, posterior tibial and dorsalis pedis arteries. PPGtracing is biphasic at the great toe. Ankle/brachial index is 1.21.Toe/brachial index is 1.10. No previous with which to compare. Left: Analog waveforms are triphasic at the common femoral, superficialfemoral, and popliteal arteries. Analog waveforms are monophasic at theposterior tibial and dorsalis pedis arteries. PPG tracing is monophasic atthe great toe. Ankle/brachial index is 0.47. Toe/brachial index is 0.28.No previous with which to compare. Recommendations: Would consider conventional angiogram or CT angiogram tobetter determine the severity of the stenosis as clinically indicated. Radha Martin REVENUE SETTLEMENTS ADMINISTRATOR-SKEIN INSPECTOR US ORDERABLES documented in this encounter Visit Diagnoses Diagnosis PVD (peripheral vascular disease) (HCC) Peripheral vascular disease, unspecified documented in this encounter Additional Health Concerns Assessment Noted Time A fall risk assessment has been complete d for the patient 11/30/2022 10:17 AM CDT PHQ-2 Depression Total Score: 0 12/01/19 10:17 AM CDT documented as of this encounter Care Teams New Car Sales Manager Relationship Specialty Start Date End Date Cayetano Bradley MD [address] [place] [phone] PCP - General Family Medicine 10/01/22 documented as of this encounter
--- OUTSIDE RECORDS SUMMARY | 2022-12-10 16:27 | XMS REPORT | Encounter Summary ---
Author Author [facility] Organization [facility] Address Unknown Phone Unavailable Care Team Providers Care Chest Painting And Sealing Supervisor Name Role Phone Cayetano Bradley MD PCP Reason for Visit * Reason Comments New Patient PVD Encounter Details Date Type Department Care Team Description 11/30/2022 11:00 AM CDT Office Visit [facility]: [facility] [id number] [place] [address] Radha Martin, COLOR GRINDER-MANAGER SAFE [address] [place] [address] PVD (peripheral vascular disease) (HCC) (Primary Dx); Atheroembolism of foot, left (HCC); Metastatic renal cell carcinoma, unspecified laterality (HCC); Primary hypertension; Hyperlipidemia, unspecified hyperlipidemia type; Diabetic vasculopathy (HCC) Social History Tobacco Use Types Packs/Day Years Used Date Smoking Tobacco: Never Smokeless Tobacco: Never Tobacco Cessation:Counseling Given: Not Answered Alcohol Use Standard Drinks/Week Comments Yes 0 [...] on file documented as of this encounter Last Filed Vital Signs Vital Sign Reading Time Taken Comments Blood Pressure 133/84 11/30/2022 10:53 AM CDT Pulse 67 11/30/2022 10:53 AM CDT Temperature 37 C (98.6 F) 11/30/2022 10:52 AM CDT Respiratory Rate - - Oxygen Saturation - - Inhaled Oxygen Concentration - - Weight 112.9 kg (249 lb) 11/30/2022 10:52 AM CDT Height 175.3 cm (5' 9") 11/30/2022 10:52 AM CDT Body Mass Index 36.77 11/30/2022 10:52 AM CDT documented in this encounter Functional Status Functional Status Response [...] No 11/30/2022 documented as of this encounter Ordered Prescriptions Prescription Sig Dispensed Refills Start Date End Da te clopiDOGreL (PLAVIX) 75 mg tabletIndications:PVD (peripheral vascular disease) (HCC) Take one tablet by mouth daily. 90 tablet 3 11/30/2022 aspirin EC (ASPIR-LOW) 81 mg tabletIndications:PVD (peripheral vascular disease) (HCC) Take one tablet by mouth daily. 90 tablet 3 11/30/2022 documented in this encounter Progress Notes * Radha Martin, COLOR GRINDER-MANAGER SAFE - 11/30/2022 11:00 AM CDT Date of Service: 11/30/2022 Chief Complaint Patient presents with New Patient PVD History of Present Illness This is a 57-year-old male with recent history of diabetes, history of hypertension, metastatic renal cell carcinoma and peripheral vascular disease. He reports that about 2 months ago ( 09/11/22 ER visit at [facility]), he was suffering left foot swelling andhis left great toe became exquisitely painful. The toe became discolored and then he had discoloration to the other toes of the left foot. It was very painful until about a week ago and has since resolved. On November 05, 2022, he had an arterial ultrasound of his left lower leg and was found tohave monophasic flow in the dorsalis pedis artery on the left with no evidence of blood flow in the posterior tibial artery at the ankle. At that point, he was encouraged to go to the emergency roomand specifically to the emergency room at for heparinization, CTA of the abdomen and pelvis withrunoff and vascular surgery consult. He declined to go to the emergency room and instead requestedthe vascular surgery consult. He came in today for bilateral lower extremity ABIs with segmental pressures. He had an SALLY on the right of 1.21 with a TBI of 1.10. He had triphasic arterial waveforms on the right. On the left, he had an SALLY of 0.47 with a TBI of 0.28. He had triphasic arterial waveforms through the popliteal artery and had monophasic waveforms in the posterior tibial and dorsalis pedisarteries. As previously stated, at least since a week ago, he has had no more pain in the left great toe or other toes of the left foot. He denies chest pain and shortness of breath. He denies fever and chills. He denies any lateralizing TIA or strokelike symptoms and specifically denies symptoms of claudication when he walks. He has no complaints of pain in either foot. He has no history of coronary artery intervention, bypass grafting, pacemaker or defibrillator implantation. He has no history of stroke. He has had 7 episodes of radiation therapy for brain mets.He has 1 tomorrow. On , he is due to get a Port-A-Cath for chemotherapy administration. Since he started dexamethasone another medications to treat his metastatic cancer, his blood sugar has gone "way up". He says he has 1 kidney and it is functioning well at this point in time. He does not smoke. He is not on any antiplatelet or anticoagulant agents and he is not on statin therapy. Medical History: Diagnosis Date Acid reflux Cancer of kidney (HCC) Diabetes mellitus (HCC) HTN (hypertension) Hypertension Lymphadenopathy Metastatic renal cell carcinoma (HCC) Obesity Renal mass, right Seizure (HCC) Ulcer of esophagus Surgical History: Procedure Laterality Date OPEN RIGHT RADICAL NEPHRECTOMY (MIDLINE) Right 07/13/2017 Performed by Gil Liu MD at [facility] OR FLEXIBLE CYSTOSCOPY N/A 07/13/2017 Performed by Gil Liu MD at [facility] OR OPEN REPAIR HERNIA UMBILICAL WITH MESH N/A 07/13/2017 Performed by Johnny Alvarez MD at [facility] OR FLEXIBLE BRONCHOSCOPY DIAGNOSTIC WITH/ WITHOUT CELL WASHING - FLEXIBLE N/A 10/01/2022 Performed by Negrito Pelaez MD at [facility] OR BRONCHOSCOPY WITH TRANSBRONCHIAL LUNG BIOPSY - FLEXIBLE - SINGLE LOBE N/A 10/01/2022 Performed by Negrito Pelaez MD at [facility] OR BRONCHOSCOPY WITH TRANSBRONCHIAL NEEDLE ASPIRATION AND BIOPSY TRACHEA/ MAIN STEM/ LOBAR BRONCHUS - FLEXIBLE N/A 10/01/2022 Performed by Negrito Pelaez MD at [facility] OR BRONCHOSCOPY WITH ENDOBRONCHIAL ULTRASOUND GUIDED TRANSTRACHEAL/ TRANSBRONCHIAL SAMPLING - 3 ORMORE MEDIASTINAL/ HILAR LYMPH NODE STATIONS/ STRUCTURE - FLEXIBLE N/A 10/01/2022 Performed by Negrito Pelaez MD at [facility] OR Allergies: No Known Allergies Medication List: acetaminophen (TYLENOL) 325 mg tablet Take 2 tablets by mouth every 4 hours as needed for Pain. aspirin EC (ASPIR-LOW) 81 mg tablet Take one tablet by mouth daily. BD ULTRA-FINE SHORT PEN NEEDLE 31 gauge x 5/16" pen needle cetirizine (ZYRTEC) 10 mg tablet Take one tablet by mouth daily. clopiDOGreL (PLAVIX) 75 mg tablet Take one tablet by mouth daily. dexAMETHasone (DECADRON) 4 mg tablet Take one tablet by mouth. Take with food. furosemide (LASIX) 20 mg tablet HYDROcodone/acetaminophen (NORCO) 5/325 mg tablet ibuprofen (ADVIL) 200 mg tablet Take one tablet by mouth every 6 hours as needed for Pain. Takewith food. insulin aspart (U-100) (NOVOLOG FLEXPEN U-100 INSULIN) 100 unit/mL (3 mL) PEN levETIRAcetam (KEPPRA) 500 mg tablet lisinopril (PRINIVIL; ZESTRIL) 10 mg tablet Take one tablet by mouth daily. losartan(+) (COZAAR) 100 mg tablet Take one tablet by mouth daily. metFORMIN (GLUCOPHAGE) 500 mg tablet OLANZapine (ZYPREXA) [address](+) (PRILOSEC) 20 mg capsule Take one capsule by mouth daily before breakfast. RONALDO PATTERSON PLUS LANCET 33 gauge Social History: reports that he has never smoked. He has never used smokeless tobacco. He reports current alcohol use. He reports that he does not use drugs. History reviewed. No pertinent family history. Review of Systems Vitals: 11/30/22 1052 11/30/22 1053 BP: 132/85 133/84 BP Source: Arm, Right Upper Arm, Left Upper Pulse: 67 67 Temp: 37 C (98.6 F) TempSrc: Oral Weight: 112.9 kg (249 lb) Height: 175.3 cm (5' 9") Body mass index is 36.77 kg/m. Physical Exam Vitals and nursing note reviewed. Exam conducted with a plant operations worker present. Constitutional: General: He is not in acute distress. Appearance: Normal appearance. He is well-developed and well-groomed. He is morbidly obese. He is not ill-appearing or diaphoretic. HENT: Head: Normocephalic. Eyes: General: Right eye: No discharge. Left eye: No discharge. Neck: Vascular: No carotid bruit. Trachea: Trachea and phonation normal. No tracheal deviation. Comments: He has a very broad fleshy neck Cardiovascular: Rate and Rhythm: Normal rate and regular rhythm. Pulses: Radial pulses are 2+ on the right side and 2+ on the left side. Femoral pulses are 2+ on the right side and 2+ on the left side. Popliteal pulses are 2+ on the right side. Dorsalis pedis pulses are detected w/ Doppler on the right side and detected w/ Doppler on the leftside. Posterior tibial pulses are detected w/ Doppler on the right side and detected w/ Doppler on the left side. Heart sounds: Normal heart sounds. Pulmonary: Effort: Pulmonary effort is normal. No respiratory distress. Breath sounds: Rhonchi present. Abdominal: General: Abdomen is protuberant. Tenderness: There is no abdominal tenderness. Comments: His bilateral groins are clean and dry . Musculoskeletal: General: Normal range of motion. Cervical back: Normal range of motion and neck supple. Right lower le+ Edema present. Left lower le+ Edema present. Right foot: Normal range of motion. No deformity. Left foot: Normal range of motion. No deformity. Feet: Right foot: Skin integrity: Skin integrity normal. No ulcer, blister, skin breakdown or erythema. Toenail Condition: Right toenails are normal. Left foot: Toenail Condition: Left toenails are normal. Comments: He has duskiness and discoloration to the toes of his left foot with the appearance of embolization. All of the toe tips have brisk capillary refill at this time. Skin: General: Skin is warm and dry. Capillary Refill: Capillary refill takes less than 2 seconds. Coloration: Skin is not cyanotic or mottled. Neurological: General: No focal deficit present. Mental Status: He is alert and oriented to person, place, and time. Motor: Motor function is intact. Coordination: Coordination is intact. Gait: Gait is intact. Comments: Stopperer Assembler strength is strong and equal bilaterally. Psychiatric: Attention and Perception: Attention normal. Mood and Affect: Mood normal. Speech: Speech normal. Behavior: Behavior normal. Behavior is cooperative. Thought Content: Thought content normal. Right Brachial Systolic: 129 Left Brachial Systolic: 144 Right SALLY: 1.21 Left SALLY: 0.47 Assessment and Plan: 1. PVD (peripheral vascular disease) ([facility]) aspirin EC (ASPIR-LOW) 81 mg tablet clopiDOGreL (PLAVIX) 75 mg tablet 2. Atheroembolism of foot, left ([facility]) 3. Metastatic renal cell carcinoma, unspecified laterality ([facility]) 4. Primary hypertension 5. Hyperlipidemia, unspecified hyperlipidemia type 6. Diabetic vasculopathy (HCC) His left foot toes have the appearance of embolization to the toe tips. An arterial ultrasound performed on November 05, 2022 indicated monophasic flow in the dorsalis pedis artery and no flow in the posterior tibial artery at the ankle. ABIs today showed an index on the right of 1.21 with a TBI of 1.10 and an SALLY on the left of 0.47 with a TBI of 0.28. His posterior tibial and dorsalis pedis arteries on the left were monophasic. In spite of this, he has no complaints of left foot pain or toe pain at this time. He has no complaints of claudication when he walks. I discussed with him hisresults and my recommendations. We discussed the potential for deterioration of his toes to the point that he may eventually require amputation. However, his pain to his toes has resolved and I am hopeful that he has had evangelical of enough arterial flow to the toes that he will go on to heal the insult. If we were to proceed with vascular surgery evaluation and treatment, he would need an ao rtogram with runoff and possible left leg intervention. He is not interested in further treatment for this problem at this time. We discussed that with metastatic cancer, it can often cause hypercoagulability. I think he would benefit from aspirin and Plavix or aspirin or Plavix if he is intolerant of the 2 together for antiplatelet therapy. We discussed that he can wait until after he has his Port-A-Cath placed so that the dual antiplatelet therapy does not interfere with the procedure. We discussed that they can contact us at any time if his symptoms return or if his toes deteriorate to the point where he needs surgery. After Port-A-Cath placement, begin low-dose aspirin and Plavix therapy. If he should have deterioration of toes on his left foot and resumption of intractable pain, he will need an aortogram with runoff and possible left leg intervention. He may also eventually need amputation of toes. We gave him information on critical limb ischemia for his visit summary. He had no additional questions or concerns for me at this time. SHELBY Jacobs > 50 Minutes spent on chart review, physical exam and documentation. documented in this encounter Miscellaneous Notes * Patient Instructions - Faiza Dominique RN - 11/30/2022 11:00 AM CDT Images from the original note were not included. Our phone is [phone]. We are sending prescriptions for low dose coated 81 mg Aspirin and Plavix. Please start taking dayafter you have Port inserted. If you are having any problems taking both Aspirin and Plavix, you may take one or the other, preferably the low dose aspirin. If you start having severe pain or notice that wounds are not improving, please call our office immediately. Continue to monitor and maintain your blood pressure and cholesterol. Keep a log of your blood pressure when you check it at home. Take all your medication as prescribed. Peripheral Artery Disease (PAD) Peripheral artery disease (PAD) occurs when the arteries that carry blood to the arms and legs are narrowed or blocked. This is usually from a buildup of plaque. This is a fatty substance in the lopez of the arteries. PAD most often affects the arteries in the legs. When these arteries are narrowed or blocked, less blood gets to the legs. This can cause leg and foot pain. If severe enough, the lack of blood flow can lead to tissue (gangrene) and the loss of a toe, foot, or leg. Having PAD also makes it more likely that arteries in other body areas are blocked. For instance, arteries that carry blood to the heart or brain may be affected. This raises the chances of heart attack and stroke. Risk factors Certain things can make PAD more likely. They include: Smoking Diabetes High blood pressure Unhealthy cholesterol levels Obesity Inactive lifestyle Older age Family history of PAD Symptoms Many people with PAD have no symptoms. If symptoms do occur, they can include: Pain in the muscles of the calves, thighs, or hips that gets worse with activity and better with rest (intermittent claudication) Achy, tired, or heavy feeling in the legs Weakness, numbness, tingling, or loss of feeling in the legs Changes in skin color of the legs Sores on the legs and feet that heal slowly Cold leg, feet, or toes Pain the feet or toes even when lying down (rest pain) Home care PAD is a lifelong (chronic) condition. Treatment is focused on managing your condition and loweringyour health risks. This may include doing the following: If you smoke, quit. This helps prevent further damage to your arteries and lowers your health risks. Ask your provider about medicines or products that can help you quit smoking. Also consider joining a stop-smoking program or support group. Be more active. This helps you lose weight and manage problems such as high blood pressure and unhealthy cholesterol levels. Start a walking program if advised to by your provider. Your provider may also help you form a safe exercise program that is right for your needs. Make healthy eating changes. This includes eating less fat, salt, and sugar. Take medicines for high blood pressure, unhealthy cholesterol levels, and diabetes as directed. Have your blood pressure and cholesterol levels checked as often as directed. If you have diabetes, try to keep your blood sugar well controlled. Test your blood sugar as directed. If you are overweight, talk with your provider about a weight-loss plan. Watch for cuts, scrapes, or open sores on your feet. Poor blood flow to the feet may slow healing and increase the risk for infection from these problems. Follow-up care Follow up with your healthcare provider as advised. If you had imaging tests such as ultrasound, they will be reviewed by a doctor. You will be told the results and any new findings that may affect your care. When to seek medical advice Call your healthcare provider right away if any of these occur: Sudden severe pain in the legs or feet Sudden cold, paleness, or blue color in the legs or feet Weakness or numbness in the legs or feet that worsens Any sore or wound in the legs or feet that wont heal Weak pulse in your legs or feet Symptoms get worse or you have new symptoms Know the signs of heart attack and stroke People with PAD are at high risk for heart attack and stroke. Knowing the signs of these problems can help you protect your health and get help when you need it. Call 911 right away if you have any of the following: Chest discomfort, such as pain, aching, tightness, or pressure that lasts more than a few minutes, or that comes and goes Pain or discomfort in the arms, back, shoulders, neck, or jaw Shortness of breath Sweating (often a cold, clammy sweat) Nausea Lightheadedness Sudden numbness, drooping, or weakness of the face, arms, or legs, especially on one side Sudden confusion or trouble speaking or understanding Sudden trouble seeing in one or both eyes Sudden trouble walking, dizziness, or loss of balance Sudden, severe headache with no known cause [employer] last reviewed this educational content on 12/29/202019993953-6742 [employer]. All rights reserved. This information is not intended as a substitute for professional medical care. Always follow your healthcare professional's instructions. A Walking Program for Peripheral Arterial Disease (PAD) Peripheral arterial disease (PAD) is a condition where the arteries in the legs are severely damaged. When you have PAD, walking can be painful. So you may start to walk less. Walking less makes yourleg muscles weaker. It then becomes harder and more painful to walk. A walking program can break this cycle. Here's how to get started. Walking farther without pain Exercise strengthens leg muscles that are out of shape. It also trains these muscles to work with less oxygen. This helps your leg muscles work better even with reduced blood flow to your legs. When you have PAD, a walking program can be helpful. Your program can: Help you walk longer and farther without claudication. This is an ache in your legs during exercisethat goes away with rest. Let you do more and be more active Add to your overall health and well-being Help you control your blood sugar and blood pressure Help you become healthier with no risk and at little or no cost Getting started Your local hospital, vascular center, or cardiac rehab center may have a special walking program for people with PAD. If so, this is your best option. But if you cant find a program, or its notcovered by insurance, you can still walk on your own. Follow these steps at each session: Step 1. Start at a pace that lets you walk for 5 to 10 minutes before you start to feel claudication. This feeling is unpleasant, but it doesnt hurt you. Keep going until the pain makes you feel that you need to stop. Step 2. Stop and rest for 3 to 5 minutes, just long enough for the pain to go away. You can rest standing or sitting. (Some people like to bring along a cane or a lightweight folding chair.) Step 3. Again walk at a pace that lets you walk for 5 to 10 minutes more before you feel pain. Thismay be slower than your starting pace in step 1. Then rest again. Step 4. Repeat this process until youve walked for 45 minutes. This should be about 60 to 80 minutes total, including resting time. You may not be able to do a full 45 minutes at first. Do as muchas you can, and increase your time as you improve. Making the most of your program Walk at least 3 times a week. Take no more than 2 days off between sessions. If you stop walking, even for a week or two, you can lose the health benefits of your program. Find a good place to walk. A treadmill or a track may be better at first. That way, you wont runthe risk of going too far and finding that you cant walk back. Be sure to have a place to walk indoors in bad weather, such as a gym or a mall. Wear shoes with sturdy, flexible soles. The heel should fit without slipping. You should have room to wiggle your toes. Keep track of how long you walk. A pedometer will show your daily progress. It can also show how much farther you can walk as time goes by. Ask a friend to keep you company. You may enjoy walking with someone else. Or you may want to make your walking sessions a time to relax by yourself. Make it fun. Listen to music while you walk and rest. Walk in a favorite park. Get to know the people at the gym, or the folks you pass on your route. While you rest, you can window-shop, read, or feed the birds. Do whatever will help you enjoy your exercise sessions. [employer] last reviewed this educational content on 07/29/202119996440-2228 [employer]. All rights reserved. This information is not intended as a substitute for professional medical care. Always follow your healthcare professional's instructions. Leg Artery Emergencies: Critical Limb Ischemia (CLI) Critical limb ischemia (CLI) is a condition that can occur over time when your leg arteries are damaged. It's a severe form of peripheral arterial disease (PAD). PAD is caused when leg arteries are narrowed, reducing blood flow. If blood flow to the toe, foot, or leg is completely blocked, the tissue starts to (gangrene). If this happens, you need medical care right away to restore blood flowand possibly save the leg. But even with the best medical care, it might not be possible to save a severely affected limb. When do you need emergency care? CLI can get worse and cause an urgent problem. For instance, if you have a wound, it may not heal. This can lead to gangrene. Go to the emergency room right away if you have any of these symptoms: A wound that's foul smelling, draining pus, or discolored Severe foot or leg pain that occurs suddenly without injury, especially if the foot or leg is cold or numb Call your healthcare provider if: You have a cut or pressure injury that doesn't heal You have foot or leg pain that happens when walking but goes away with rest. This may be a sign of blocked arteries. How is critical limb ischemia diagnosed? Certain tests may be done to find out if you have CLI. First your healthcare provider will carefully examine you, checking for pulses at several places. Other common tests include: Ankle-brachial index (SALLY). The blood pressure in your ankle is compared with the blood pressure inyour arm. Duplex ultrasound. Harmless sound waves are used to create images of blood flow in your legs. Arteriography. X-ray dye (contrast medium) is injected into the artery using a thin, flexible tube (catheter). This allows blood vessels to be seen easily on X-rays. How is critical limb ischemia treated? Possible treatments for CLI include: Dissolving or removing a blood clot. To dissolve a clot, a tube (catheter) is put into an artery inyour groin. Clot-busting medicine is put into the tube to dissolve the clot. Or surgery may be doneto remove the clot. A cut (incision) is made in the artery at the blocked area. The clot is then removed. Angioplasty. A tiny, uninflated balloon is sent to the narrowed area by a catheter. It's then inflated to widen the artery. The balloon is deflated and removed. Stenting. After angioplasty, a tiny wire mesh tube (stent) may be put in the artery to help hold itopen. The stent is also put in using a catheter. Endarterectomy. An incision is made in the artery at the blocked area. The material that blocks theartery is then removed from artery lopez. Peripheral bypass surgery. A natural or artificial graft is used to bypass the blocked area. Amputation. If left untreated, the affected area may have to be removed (amputated). How can critical limb ischemia emergencies be prevented? Know the signs and symptoms of a leg artery emergency. If you have diabetes or poor blood circulation, check your feet daily for wounds, sores, blisters, and color changes. If you smoke, get help to stop. [employer] last reviewed this educational content on 11/28/202019990099-7182 [employer]. All rights reserved. This information is not intended as a substitute for professional medical care. Always follow your healthcare professional's instructions. documented in this encounter Plan of Treatment Not on file documented as of this encounter Visit Diagnoses Diagnosis PVD (peripheral vascular disease) (HCC)- Primary Peripheral vascular disease, unspecified Atheroembolism of foot, left (HCC) Metastatic renal cell carcinoma, unspecified laterality (HCC) Primary hypertension Unspecified essential hypertension Hyperlipidemia, unspecified hyperlipidemia type Diabetic vasculopathy (HCC) Type II or unspecified type diabetes mellitus with other specified manifestations, not stated as uncontrolled documented in this encounter Discontinued Medications Medication Sig Discontinue Reason Start Date End Da te amLODIPine (NORVASC) 5 mg tablet Take one tablet by mouth daily. Therapy completed 11/30/2022 documented as of this encounter Historical Medications * This list may reflect changes made after this encounter. Medication Sig Dispensed Refills Start Date End Date OLANZapine (ZYPREXA) 5 mg tablet 0 BD ULTRA-FINE SHORT PEN NEEDLE 31 gauge x 5/16" pen needle 0 10/20/2022 metFORMIN (GLUCOPHAGE) 500 mg tablet 0 10/30 levETIRAcetam (KEPPRA) 500 mg tablet 0 10/30 ONETOUCH DELICA PLUS LANCET 33 gauge 0 09/29 insulin aspart (U-100) (NOVOLOG FLEXPEN U-100 INSULIN) 100 unit/mL (3 mL) PEN 0 HYDROcodone/acetaminophen (NORCO) 5/325 mg tablet 0 11/26/2022 furosemide (LASIX) 20 mg tablet 0 3 added in this encounter Additional Health Concerns Assessment Noted Time A fall risk assessment has been complete d for the patient 11/30/2022 10:17 AM CDT PHQ-2 Depression Total Score: 0 12/01/19 10:17 AM CDT documented as of this encounter Care Teams Chest Painting And Sealing Supervisor Relationship Specialty Start Date End Date Cayetano Bradley MD [address] [place] [address] PCP - General Family Medicine 10/01/22 documented as of this encounter
--- OUTSIDE RECORDS SUMMARY | 2022-12-10 16:27 | XMS REPORT | Encounter Summary ---
Author Author [facility] Organization [facility] Address Unknown Phone Unavailable Care Team Providers Care Architectural Model Maker Name Role Phone Tommie Escobar MD PCP Unavaila ble Reason for Visit * Reason Onset Date Comments Procedure 09/22/2022 EBUS Encounter Details Date Type Department Care Team Description 09/22/2022 Telephone Pulmonology: [facility] [address], [address] [address] Guilherme Reyes MD [address] [facility] [address] [place], [place] [id number] Procedure (EBUS) Social History Tobacco Use Types Packs/Day Years [...] encounter Miscellaneous Notes * Telephone Encounter - Evelina Hines RN - 09/23/2022 1:42 PM CDT Spoke with Suzan at Dr Cayetano Bradley's office. States patient just had labs drawn on 09/10/22 . She will be faxing all results and also MD's last office notes over today. Evelina Hines RN * Telephone Encounter - Evelina Hines RN - 09/22/2022 4:13 PM CDT Spoke with patient regarding pulmonary procedure, COVID testing, pre-procedure requirements and instructions. All information that we have gone over today will also be sent to patient via their [employer] account. Patient understands that they will be able to access this information which will also have my telephone number should they have any further questions or concerns, as well as contacting [employer] a [employer] message. Patient has been informed that mandatory COVID testing is no longer required prior to having the procedure. Patient has been informed of the risk factors of not having the COVID test prior to the procedure and verbalizes knowledge of these risk factors. Patient has verbalized understanding of all instructions given to them today and all questions have been answered. Patient is scheduled for EBUS on 10/01/[address] Negrito Pelaez . Patient states he just had labs drawn at PCP, Dr Cayetano Bradley's within the last week or so. I have called and left a message for the office to call me back and let me know what was drawn and fax the results. Patient also mentioned that he has recently been put on medication for his sugar because of the steroids he is taking for his brain which was raising his sugars. He is requesting I get an updated med list from Dr Bradley also when I speak with them. Informed pt that if the labs are not adequate, he will need to go and get more drawn, verbalized understanding. Evelina Hines RN * Telephone Encounter - Evelina Hines RN - 09/22/2022 3:24 PM CDT Left message for patient to call back to schedule procedure. Will await call from patient. Evelina Hines RN documented in this encounter Plan of Treatment Scheduled Orders Name Type Priority Associated Diagnoses Orde r Schedule CBC Lab STAT Renal mass Expected: 09/22/2022 (Approximate), Expires: 09/23/2023 BASIC METABOLIC PANEL Lab STAT Renal mass Expected: 09/22/2022 (Approximate), Expires: 09/23/2023 documented as of this encounter Visit Diagnoses Diagnosis Renal mass- Primary Unspecified disorder of kidney and ureter documented in this encounter Additional Health Concerns Assessment Noted Time A fall risk assessment has been complete d for the patient 07/10/2018 1:18 PM CDT documented as of this encounter Care Teams Architectural Model Maker Relationship Specialty Start Date End Date Tommie Escobar MD PCP - General Family Medicine 05/23/17 09/30/22 documented as of this encounter
--- OUTSIDE RECORDS SUMMARY | 2022-12-10 16:27 | XMS REPORT | Encounter Summary ---
Author Author [facility] Organization [facility] Address Unknown Phone Unavailable Care Team Providers Care Infantry Officer Name Role Phone Tommie Escobar MD PCP Unavaila ble Encounter Details Date Type Department Care Team Description 09/11/2022 - 09/11/2022 11:59 PM CDT Hospital Encounter Imaging: [place] [facility] [address] [place] [address] Discharge Disposition: Home or Self Care Social [...] No 07/29/2017 documented as of this encounter Medications at Time of Discharge Medication Sig Dispensed Refills Start Date End Date acetaminophen (TYLENOL) 325 mg tablet Take 2 tablets by mouth every 4 hours as needed for Pain. 0 07/16/2017 cetirizine (ZYRTEC) 10 mg tablet Take one tablet by mouth daily. 0 lisinopril (PRINIVIL; ZESTRIL) 10 mg tablet Take one tablet by mouth daily. 0 losartan(+) (COZAAR) 100 mg tablet Take one tablet by mouth daily. [address](+) (PRILOSEC) 20 mg capsule Take one capsule by mouth daily before breakfast. 0 amLODIPine (NORVASC) 5 mg tablet Take one tablet by mouth daily. 0 11/30/2022 documented as of this encounter Discharge Disposition Disposition Code Departure Means Destination Home or Self Detention documented in this encounter Plan of Treatment Not on file documented as of this encounter Procedures Procedure Name Priority Date/Time Associated Diagnosis Comments CT CHEST/ABD/PEL EXTERNAL IMAGING Routine 09/11/2022 12:00 AM CDT documented in this encounter Results * CT CHEST/ABD/PEL EXTERNAL IMAGING (09/11/2022 12:00 AM CDT) Narrative Scheduling, Silent - 09/20/2022 2:55 PM CDT This order has been auto finalized and does not contain a result. Radiologist Outpatient RADIOLOGY EXTERNA L ORDERABLES documented in this encounter Visit Diagnoses Not on filedocumented in this encounter Additional Health Concerns Assessment Noted Time A fall risk assessment has been complete d for the patient 07/10/2018 1:18 PM CDT documented as of this encounter Care Teams Infantry Officer Relationship Specialty Start Date End Date Tommie Escobar MD PCP - General Family Medicine 05/23/17 09/30/22 documented as of this encounter
--- OUTSIDE RECORDS SUMMARY | 2022-12-10 16:27 | XMS REPORT | Encounter Summary ---
Author Author [facility] Organization [facility] Address Unknown Phone Unavailable Care Team Providers Care Plaster Mixer Name Role Phone Cayetano Bradley MD PCP Encounter Details Date Type Department Care Team Description 10/01/2022 Travel Social History Tobacco Use Types Packs/Day Years [...] No 07/29/2017 documented as of this encounter Plan of Treatment Not on file documented as of this encounter Visit Diagnoses Not on filedocumented in this encounter Additional Health Concerns Assessment Noted Time A fall risk assessment has been complete d for the patient 10/01/2022 2:46 PM CDT documented as of this encounter Care Teams Plaster Mixer Relationship Specialty Start Date End Date Cayetano Bradley MD [address] [place] [id number] PCP - General Family Medicine 10/01/22 documented as of this encounter
--- OUTSIDE RECORDS SUMMARY | 2022-12-10 16:27 | XMS REPORT | Encounter Summary ---
Author Author [facility] Organization [facility] Address Unknown Phone Unavailable Care Team Providers Care Review Specialist Name Role Phone Tommie Escobar MD PCP UnavailCayetano Blair MD PCP Encounter Details Date Type Department Care Team Description 09/22/2022 Prep for Case Pulmonology: [facility] [address], [address] [phone] PostGuilherme Gross MD [address] [facility] [address] [place] [address] Lung nodule (Primary Dx); LAD (lymphadenopathy), hilar; Paratracheal lymphadenopathy Social History Tobacco Use Types Packs/Day Years [...] as of this encounter Visit Diagnoses Diagnosis Lung nodule- Primary Solitary pulmonary nodule LAD (lymphadenopathy), hilar Enlargement of lymph nodes Paratracheal lymphadenopathy documented in this encounter Orders Case Request Count Last Ordered Date First Orde red Date CASE REQUEST 1 09/22/2022 documented in this encounter Additional Health Concerns Assessment Noted Time A fall risk assessment has been complete d for the patient 07/10/2018 1:18 PM CDT documented as of this encounter Care Teams Review Specialist Relationship Specialty Start Date End Date Tommie Escobar MD PCP - General Family Medicine 05/23/17 09/30/22 Cayetano Bradley MD [address] [address] PCP - General Family Medicine 10/01/22 documented as of this encounter
--- OUTSIDE RECORDS SUMMARY | 2022-12-10 16:27 | XMS REPORT | Encounter Summary ---
Author Author [facility] Organization [facility] Address Unknown Phone Unavailable Care Team Providers Care Narrow Fabric Loom Fixer Name Role Phone Cayetano Bradley MD PCP Encounter Details Date Type Department Care Team Description 11/30/2022 Travel Social History Tobacco Use Types Packs/Day [...] No 11/30/2022 documented as of this encounter Plan of Treatment Not on file documented as of this encounter Visit Diagnoses Not on filedocumented in this encounter Additional Health Concerns Assessment Noted Time A fall risk assessment has been complete d for the patient 11/30/2022 10:17 AM CDT PHQ-2 Depression Total Score: 0 12/01/19 10:17 AM CDT documented as of this encounter Care Teams Narrow Fabric Loom Fixer Relationship Specialty Start Date End Date Cayetano Bradley MD [address] [place] [address] PCP - General Family Medicine 10/01/22 documented as of this encounter
--- OUTSIDE RECORDS SUMMARY | 2022-12-10 16:27 | XMS REPORT | Encounter Summary ---
Author Author [facility] Organization [facility] Address Unknown Phone Unavailable Care Team Providers Care Peanut Separator Name Role Phone Cayetano Bradley MD PCP Reason for Visit * Auth/Cert (Routine) Specialty Diagnoses / Procedures Referred By Contac t Referred To Contact Diagnoses Lung nodule LAD (lymphadenopathy), hilar Paratracheal lymphadenopathy Lung nodule [R91.1] LAD (lymphadenopathy), hilar [R59.0] Paratracheal lymphadenopathy [R59.0] Procedures [facility] INCL FLUOR GDNCE DX W/CELL WASHG SPX [place] BRONCHOSCOPY W/TRANSBRONCHIAL LUNG BX 1 LOBE [place] BRONCHOSCOPY NEEDLE BX TRACHEA MAIN STEM&/BRON [facility] GUID[facility]PL 3/> NODE STATION/STRUX [...] Expiration Date Visits Re quested Visits Authorized [id number] 1 1 Encounter Details Date Type Department Care Team Description 10/01/2022 11:25 AM CDT - 10/01/2022 5:55 PM CDT Hospital Encounter Operating Room: [facility] [address] [facility] [address] [place] [phone] Negrito Mancilla MD [address] [place], [place] [id number] Lung nodule Discharge Disposition: Home or Self Care Social [...] PM CDT documented as of this encounter Last Filed Vital Signs Vital Sign Reading Time Taken Comments Blood Pressure 122/69 10/01/2022 5:30 PM CDT Pulse 68 10/01/2022 5:30 PM CDT Temperature 36.7 C (98 F) 10/01/2022 5: 30 PM CDT Respiratory Rate - - Oxygen Saturation 96% 10/01/2022 5: 30 PM CDT Inhaled Oxygen Concentration - - Weight 118.4 kg (261 lb 0.4 oz) 023 2:16 PM CDT Height 175.3 cm (5' 9") 10/01/2022 2:1 6 PM CDT Body Mass Index 38.55 10/01/2022 2:16 PM CDT documented in this encounter Functional Status [...] Take one tablet by mouth daily. 0 dexAMETHasone (DECADRON) 4 mg tablet Take one tablet by mouth. Take with food. 0 ibuprofen (ADVIL) 200 mg tablet Take one tablet by mouth every 6 hours as needed for Pain. Take with food. 0 lisinopril (PRINIVIL; ZESTRIL) 10 mg tablet [...] Code Departure Means Destination Home or Self Care Wheelchair documented in this encounter Progress Notes * Nancie Middleton RN - 10/01/2022 5:04 PM CDT At 1704 updated pt's on pt's condition. Discharge instructions reviewed with pt's Alycia. All questions answered. Return precautions reviewed. VSS. PO liquids tolerated. IV removed. All belongings returned to patients at this time. Discharged in stable condition documented in this encounter H&P Notes * Xavi Ye MD - 10/01/2022 11:08 AM CDT Pulmonary and Critical Care Procedure H&P Admission Date: (Not on file) LOS: 0 days Assessment: Kayode Mckeon is a 57 y.o. male with PMH RCC s/p R nephrectomy, ETOH use, HTN, DM found tohave a large right perihilar mass and intracranial lesions concerning for mestastatic cancer. He presents for EBUS with FNA. Plan: >Proceed with EBUS with FNA Patient discussed w/ Dr. Mancilla. Xavi Ye MD, PGY5 Pulmonary & Critical Care Fellow Pager [phone] | On Voalte History of Present Illness: Kayode Mckeon is a 57 y.o. male with PMH RCC s/p R nephrectomy, ETOH use, HTN, DM found tohave a large right perihilar mass and intracranial lesions concerning for mestastatic cancer. He presents for EBUS with FNA. Kayode Mckeon has no complaints or concerns. No update to medicalproblems since last seen by pulmonology. Kayode Mckeon has not ate or drank since midnight. Review of Systems: Brief ROS negative except for items stated in HPI. Past Medical History: Medical History: Diagnosis Date Acid reflux Hypertension Renal mass, right Ulcer of esophagus Past Surgical History: Surgical History: Procedure Laterality Date OPEN RIGHT RADICAL NEPHRECTOMY (MIDLINE) Right 07/13/2017 Performed by Gil Liu MD at [facility] OR FLEXIBLE CYSTOSCOPY N/A 07/13/2017 Performed by Gil Liu MD at [facility] OR OPEN REPAIR HERNIA UMBILICAL WITH MESH N/A 07/13/2017 Performed by Johnny Alvarez MD at [facility] OR Social History: Social History Socioeconomic History Marital status: Tobacco Use Smoking status: Never Smokeless tobacco: Never Substance and Sexual Activity Alcohol use: Yes Comment: 2-3 times weekly, vodka and cranberry Drug use: No Family History: No family history on file. Allergies: Patient has no known allergies. No medications prior to admission. Medications: Scheduled Meds:Continuous Infusions: PRN and Respiratory Meds: Vital Signs: Last Filed in 24 hours Vital Signs: 24 hour Range BP: ()/() ABP: ()/() Physical Exam: Constitutional: Laying in bed, NAD Eyes: No periorbital edema ENT: No obvious masses Neck: trachea midline Lungs: Normal work of breathing Abdomen: Non-distended Skin: No rashes, eccymosis Neurologic: No seizure-like activity Psych: Calm, NAD Radiology and other diagnostic tests: I have personally reviewed relevant imaging and diagnostic tests. Associated attestation - Negrito Mancilla MD - 10/01/2022 3:00 PM CDT ATTESTATION I personally performed the tomlinson portions of the E/M visit, discussed case with resident and concur with resident documentation of history, physical exam, assessment, and treatment plan unless otherwise noted. Staff name: Negrito Mancilla MD Date: 10/01/2022 documented in this encounter Procedure Notes * Negrito Mancilla MD - 10/01/2022 3:25 PM CDT Brief Operative Note Name: Kayode Mckeon is a 57 y.o. male : 1965 DATE OF OPERATION: 10/01/2022 Date: 10/01/2022 Preoperative Dx: Lung nodule [R91.1] LAD (lymphadenopathy), hilar [R59.0] Paratracheal lymphadenopathy [R59.0] Post-op Diagnosis * Lung nodule [R91.1] * LAD (lymphadenopathy), hilar [R59.0] * Paratracheal lymphadenopathy [R59.0] Procedure(s): FLEXIBLE BRONCHOSCOPY DIAGNOSTIC WITH/ WITHOUT CELL WASHING - FLEXIBLE BRONCHOSCOPY WITH TRANSBRONCHIAL LUNG BIOPSY - FLEXIBLE - SINGLE LOBE BRONCHOSCOPY WITH TRANSBRONCHIAL NEEDLE ASPIRATION AND BIOPSY TRACHEA/ MAIN STEM/ LOBAR BRONCHUS - FLEXIBLE BRONCHOSCOPY WITH ENDOBRONCHIAL ULTRASOUND GUIDED TRANSTRACHEAL/ TRANSBRONCHIAL SAMPLING - 3 OR MORE MEDIASTINAL/ HILAR LYMPH NODE STATIONS/ STRUCTURE - FLEXIBLE Surgeon(s) and Role: * Negrito Mancilla MD - Primary * Xavi Ye MD - Fellow Findings: Endobronchial lesion at RUL takeoff. Erythema of anterior wall of distal RMSB/RC2 Extrinsic compression of RUL airways 4R FNA Estimated Blood Loss: minimal Specimen(s) Removed/Disposition: 4R FNA Complications: None Implants: * No implants in log * Drains: None Disposition: PACU - stable Xavi Ye MD Pager [phone] ATTESTATION I performed this procedure with a resident. Staff name: Negrito Mancilla MD Date: 10/01/2022 documented in this encounter Plan of Treatment Not on file documented as of this encounter Procedures Procedure Name Priority Date/Time Associated Diagnosis Comments HC CELL BLOCK-CYTOLOGY Routine 10/01/2022 3:30 PM CDT BRONCHOSCOPY WITH ENDOBRONCHIAL ULTRASOUND GUIDED TRANSTRACHEAL/ TRANSBRONCHIAL SAMPLING - 3 OR MORE MEDIASTINAL/ HILAR LYMPH NODE STATIONS/ STRUCTURE - FLEXIBLE 10/01/2022 2:55 PM CDT Lung nodule LAD (lymphadenopathy), hilar Paratracheal lymphadenopathy BRONCHOSCOPY WITH TRANSBRONCHIAL NEEDLE ASPIRATION AND BIOPSY TRACHEA/ MAIN STEM/ LOBAR BRONCHUS - FLEXIBLE 10/01/2022 2:55 PM CDT Lung nodule LAD (lymphadenopathy), hilar Paratracheal lymphadenopathy BRONCHOSCOPY WITH TRANSBRONCHIAL LUNG BIOPSY - FLEXIBLE - SINGLE LOBE 10/01/2022 2:55 PM CDT Lung nodule LAD (lymphadenopathy), hilar Paratracheal lymphadenopathy BRONCHOSCOPY DIAGNOSTIC WITH/ WITHOUT CELL WASHING - FLEXIBLE 10/01/2022 2:55 PM CDT Lung nodule LAD (lymphadenopathy), hilar Paratracheal lymphadenopathy BRONCHOSCOPY 10/01/2022 2:35 PM CDT TELEMETRY STRIPS-SCAN 10/01/2022 12:00 AM CDT documented in this encounter Results * CYTOLOGY FNA LYMPH NODE (10/01/2022 3:30 PM CDT) Cytology [facility] [email or web address] Department of Pathology and Laboratory Medicine [address] [place] [address] Surgical Pathology Office: [phone] CYTOLOGY REPORT NAME: KAYODE MCKEON. 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 Pass one adequate for evaluation. Passes two through seven in saline for cell block. The cell block specimen is removed from the patient at 10/01/2022 15:08, placed in formalin at 15:40 and not removed from formalin until 23:40 the same day. ###################### ###################### ###################### ###### Final Diagnosis: A. Lymph node, station 4R (lower paratracheal), EBUS FNA: Metastatic carcinoma, consistent with renal primary. See comment. Comment: A cell block is prepared and examined microscopically; it contains sufficient tissue for further testing. Immunostains show the tumor is positive for PAX-8; and negative for TTF-1 and p40, supporting the diagnosis. Attestation: By this signature, I attest that I have personally formulated the final interpretation expressed in this report and that the above diagnosis is based upon my examination of the slides and/or other material indicated in this report. +++Electronically Signed Out By+++ kai/10/04/2022 Interpreted by: Ama Ortiz MD If immunohistochemical stains and/or in situ hybridization are cited in this report, the performance characteristics were determined by the Department of Pathology and Laboratory Medicine of the [facility] ([employer]) in compliance with CLIA'88 regulations. Some of these tests rely on the use of "analyte specific reagents" and are subject to specific labeling requirements by the FDA. The stains are performed on formalin-fixed, paraffin-embedded tissue, unless otherwise stated. Known positive and negative control tissues demonstrate appropriate staining. Results should be interpreted with caution given the likelihood of false negativity on decalcified specimens. This testing was developed by the Department of Pathology and Laboratory Medicine of the [facility]. It has not been cleared or approved by the FDA. The FDA has determined that such clearance or approval is not necessary. Technical component performed by the [facility] at [address] [place] [address]. CLIA # [id number]. Professional component performed by [facility] ([facility]) at [address] [place] [address]. CLIA # [id number]. 10/05/2022 12:00 AM CDT [facility] DEPT PATH AND LAB MEDICINE LYMPH NODE SPECIMEN / Unknown 10/01/2022 3:30 PM CDT 10/01/2022 3:33 PM CDT Negrito Mancilla MD [facility]ICINE [address] [place] [address], [place] * BRONCHOSCOPY (10/01/2022 2:35 PM CDT) Provation Report ___ Patient Name: Kayode Mckeon Procedure Date: 10/01/2022 2:35 PM CSN: [id number] Date of : 1965 Gender: Male Attending Physician: Negrito Mancilla , , [id number] ___ Procedure: Bronchoscopy Indications: Right upper lobe mass Providers: Negrito Mancilla (Doctor), Anselmo Ye (Fellow), Ramo Ordaz (Nurse), Marquis Brown, Technologist (Firebreak Cutter) Referring Physician: Referral Self Medications: General Anesthesia Complications: No immediate complications ___ Findings: A diagnostic bronchoscope was introduced. Airway examination was notable for nodular endobronchial lesion at the RUL takeoff. There is extrinsic compression of the RUL but the segmental airways could be visualized. There is erythema of the anterior wall of the RMSB/RC2 jacek. Otherwise the airway examination is normal. An endobronchial ultrasound endoscope was utilized in order to assist with fine needle aspiration and/or characterization of lymph node stations 4R. Lymph Nodes: Lymph node sizing was performed via endobronchial ultrasound for suspected lung cancer. Sampling by transbronchial needle aspiration was also performed using an Olympus ViziShot 21 gauge needle in the right lower paratracheal region (level 4R) and sent for routine cytology. - The 4R (lower paratracheal) node was 23 mm by EBUS. Seven samples with the needle were obtained. Lymph Nodes: Rapid On-Site Evaluation (TITA): - 4R (lower paratracheal): the cellularity of the specimen was adequate, initial TITA atypical The diagnostic bronchoscope was introduced to assess for bleeding. There was mild bleeding from the 4R biopsy site. Cold saline was applied and hemostasis was rapidly achieved. Impression: - Right upper lobe mass - FNA to 4R - Rapid On-Site Evaluation (TITA): Preliminary cytology: - 4R (lower paratracheal): the cellularity of the specimen was adequate. (Final results are pending). -RUL takeoff endobronchial nodular lesion. There is extrinsic compression of the RUL airways. There is erythema of the anterior wall of the RMSB/RC2 jacek. Otherwise the airway examination is normal. Estimated Blood Loss: Estimated blood loss: none. Recommendation: - Await cytology results. Scope In: 3:08:28 PM Scope Out: 3:23:01 PM Attending Participation: I was present and participated during the entire procedure, including non-tomlinson portions. Negrito Mancilla MD Negrito Mancilla, 10/01/2022 4:03:58 PM The attending physician has electronically signed and finalized this document. Anselmo Ye, Number of Addenda: 0 Note Initiated On: 10/01/2022 2:35 PM KU OTHER RESULTS Anatomical Region Laterality Modality Other 10/01/2022 2:3 5 PM CDT Referral Self GI BRONCHOSCOPY ORDE GRAY * TELEMETRY STRIPS-SCAN (10/01/2022 12:00 AM CDT) Narrative 10/01/2022 12:00 AM CDT Ordered by an unspecified provider. Scanned Document PROCEDURE DUMMY ORDE RS documented in this encounter Visit Diagnoses Diagnosis Lung mass- Primary Swelling, mass, or lump in chest documented in this encounter Administered Medications Inactive Administered Medications Medication Order MAR Action Action Date Dose Rate Site sodium chloride 0.9 % infusion 1,000 mL, 1,000 mL, Intravenous, at 20 mL/hr, CONTINUOUS, Starting on Tue10/01/22 at 1445, Until Tue10/01/22 at 2007, Pre-Op Infusion Restarted 10/01/2022 3:27 PM CDT documented in this encounter Historical Medications * This list may reflect changes made after this encounter. Medication Sig Dispensed Refills Start Date End Date dexAMETHasone (DECADRON) 4 mg tablet Take one tablet by mouth. Take with food. 0 ibuprofen (ADVIL) 200 mg tablet Take one tablet by mouth every 6 hours as needed for Pain. Take with food. 0 added in this encounter Active and Recently Administered Medications Times are shown in CDT. Continuous Medication Order 09/29/2022 09/30/2022 10/01/2022 sodium chloride 0.9 % infusion 1,000 mL, 1,000 mL, Intravenous, at 20 mL/hr, CONTINUOUS, Starting on Tue10/01/22 at 1445, Until Tue10/01/22 at 2007, Pre-Op 1436 (Given - New Ba g - Provider: Nita Castillo RN)1453 (Anesthesia Continue from Pre-Post - Provider: CASSANDRA Howard)1526 (Infusion Paused - Provider: CASSANDRA Howard - Comment: Switch to gravity)1527 (Infusion Restarted - Provider: CASSANDRA Howard) documented in this encounter Orders Diet Count Last Ordered Date First Orde red Date DISCHARGE DIET REGULAR 1 10/01/2022 Nursing Count Last Ordered Date First Orde red Date DISCHARGE ACTIVITY NORMAL 1 10/01/2022 DISCHARGE CONTACT 1 10/01/2022 DISCHARGE SIGNS/SYMPTOMS 1 10/01/2022 Discharge Count Last Ordered Date First Orde red Date DISCHARGE PATIENT NOW 1 10/01/2022 Vital Signs Count Last Ordered Date First Orde red Date VITAL SIGNS 1 10/01/2022 documented in this encounter Additional Health Concerns Assessment Noted Time A fall risk assessment has been complete d for the patient 10/01/2022 2:46 PM CDT documented as of this encounter Care Teams Peanut Separator Relationship Specialty Start Date End Date Cayetano Bradley MD [address] [address] PCP - General Family Medicine 10/01/22 documented as of this encounter
--- OUTSIDE RECORDS SUMMARY | 2022-12-10 16:27 | XMS REPORT | Encounter Summary ---
Author Author [facility] Organization [facility] Address Unknown Phone Unavailable Care Team Providers Care Country Manager Name Role Phone Cayetano Bradley MD PCP Reason for Visit * Auth/Cert (Routine) Specialty Diagnoses / Procedures Referred By Contac t Referred To Contact Diagnoses Lung nodule LAD (lymphadenopathy), hilar Paratracheal lymphadenopathy Lung nodule [R91.1] LAD (lymphadenopathy), hilar [R59.0] Paratracheal lymphadenopathy [R59.0] Procedures [facility] INCL FLUOR GDNCE DX W/CELL WASHG SPX [place] BRONCHOSCOPY W/TRANSBRONCHIAL LUNG BX 1 LOBE [place] BRONCHOSCOPY NEEDLE BX TRACHEA [facility] STEM&/[facility]/> NODE STATION/STRUX FLEXIBLE [...] Expiration Date Visits Re quested Visits Authorized [id number] 1 1 Encounter Details Date Type Department Care Team Description 10/01/2022 1:30 PM CDT - 10/01/2022 2:45 PM CDT Surgery Operating Room: [facility] [address] [facility] [address] [place] [phone] Negrito Mancilla MD [address] [place], [place] [id number] FLEXIBLE BRONCHOSCOPY DIAGNOSTIC WITH/ WITHOUT CELL WASHING - FLEXIBLE Surgery Details Date/Time Status Location OR Service Patient Class Case Cl ass Case Type Trauma Case? 10/01/22 1:30 PM Posted [facility] OR PULM ROOM Pulmonary Outpatient Surgery Elective - Treating conditions that are not life or limb threatening Panel 1 Procedure LRB Anes Op Region Wound Class Comments FLEXIBLE BRONCHOSCOPY DIAGNOSTIC WITH/ WITHOUT CELL WASHING - FLEXIBLE N/A Defer to Anesthesia Bronchus NA BRONCHOSCOPY WITH TRANSBRONCHIAL LUNG BIOPSY - FLEXIBLE - SINGLE LOBE N/A Defer to Anesthesia Bronchus NA BRONCHOSCOPY WITH TRANSBRONCHIAL NEEDLE ASPIRATION AND BIOPSY TRACHEA/ MAIN STEM/ LOBAR BRONCHUS - FLEXIBLE N/A Defer to Anesthesia Bronchus NA BRONCHOSCOPY WITH ENDOBRONCHIAL ULTRASOUND GUIDED TRANSTRACHEAL/ TRANSBRONCHIAL SAMPLING - 3 OR MORE MEDIASTINAL/ HILAR LYMPH NODE STATIONS/ STRUCTURE - FLEXIBLE N/A Defer to Anesthesia Bronchus NA Surgeon Surgeon Role Service Panel Negrito Mancilla MD Primary Pulmonary 1 Xavi Ye MD Fellow Pulmonary 1 documented in this encounter Social History Tobacco [...] Sign Reading Time Taken Comments Blood Pressure 168/123 10/01/2022 2:26 PM CDT Pulse 75 10/01/2022 2:26 PM CDT Temperature 36.5 C (97.7 F) 10/01/2022 2:16 PM CDT Respiratory Rate - - Oxygen Saturation 96% 10/01/2022 2: 26 PM CDT Inhaled Oxygen Concentration - - [...] PGY5 Pulmonary & Critical Care Fellow Pager [phone] | On Voalte History of Present Illness: [...] 07/13/2017 Performed by Gil Liu MD at [facility] OR FLEXIBLE CYSTOSCOPY N/A 07/13/2017 Performed by Gil Liu MD at [facility] OR OPEN REPAIR HERNIA UMBILICAL WITH MESH N/A 07/13/2017 Performed by Johnny Alvarez MD at [facility] OR Social History: Social History Socioeconomic History [...] PACU - stable Xavi Ye MD Pager [phone] ATTESTATION I performed this procedure with a [...] NODE (10/01/2022 3:30 PM CDT) Cytology [facility] [email or web address] Department of Pathology and Laboratory Medicine [address] [place] [address] Surgical Pathology Office: [phone] CYTOLOGY REPORT NAME: KAYODE MCKEON SURG PATH #: [id number] MR #: [id number] ALT ID #: BILLING #: [id number] LOCATION: [facility] DATE OF PROCEDURE: 10/01/2022 AGE: [...] determination of adequacy was performed by the remote mortgage underwriter, ANKRU, on Diff-Quik stained slide(s). Pass one adequate [...] in this report. +++Electronically Signed Out By+++ smk/10/04/2022 Interpreted by: Ama Ortiz MD If immunohistochemical stains and/or in situ hybridization are cited in this report, the performance characteristics were determined by the Department of Pathology and Laboratory Medicine of the [facility] ([employer]) in compliance with [...] of Pathology and Laboratory Medicine of the [facility]. It has not been cleared or approved by the FDA. The FDA has determined that such clearance or approval is not necessary. Technical component performed by the [facility] at [address] [place] [address]. CLIA # [id number]. Professional component performed by [facility] ([facility] at [address] [place] [address]. CLIA # [id number]. 10/05/2022 12:00 AM CDT [facility] DEPT PATH AND LAB MEDICINE LYMPH NODE SPECIMEN / Unknown 10/01/2022 3:30 PM CDT 10/01/2022 3:33 PM CDT Negrito Mancilla MD PATHOLOGY/CYTOLOGY O RDERABLES [facility] DEPT PATH AND LAB MEDICINE [address] [place] [address], * BRONCHOSCOPY (10/01/2022 2:35 PM CDT) Provation Report ___ Patient Name: Kayode Mckeon Procedure Date: 10/01/2022 2:35 PM CSN: [id number] Date of : 1965 Gender: Male Attending Physician: Negrito Mancilla , , [id number] ___ Procedure: Bronchoscopy Indications: Right upper lobe mass Providers: Negrito Mancilla (Doctor), Anselmo Ye (Fellow), Ramo Ordaz (Nurse), Marquis Brown, Technologist (Steward/Stewardess Banquet) Referring Physician: Referral Self Medications: General Anesthesia [...] aspiration was also performed using an Olympus Tsavo MediaiShot 21 gauge needle in the right lower [...] 5 PM CDT Referral Self GI BRONCHOSCOPY DIETER CASTELLANO * TELEMETRY STRIPS-SCAN (10/01/2022 12:00 AM CDT) Narrative 10/01/2022 12:00 AM CDT Ordered by an unspecified provider. Scanned Document PROCEDURE DUMMY ORDE RS documented in this encounter Visit Diagnoses Diagnosis Lung mass- Primary Swelling, mass, or lump in chest Lung nodule Solitary pulmonary nodule LAD (lymphadenopathy), hilar Enlargement of lymph nodes Paratracheal lymphadenopathy documented in this encounter Administered Medications Inactive [...] documented as of this encounter Care Teams Country Manager Relationship Specialty Start Date End Date Cayetano Bradley MD [address] [place] [address] PCP - General Family Medicine 10/01/22 documented as of this encounter
--- OUTSIDE RECORDS SUMMARY | 2022-12-10 16:27 | XMS REPORT | Encounter Summary ---
Author Author [facility] Organization [facility] Address Unknown Phone Unavailable Care Team Providers Care Head Of Insight Name Role Phone Cayetano Bradley MD PCP Reason for Visit * Reason Onset Date Comments General Question 11/09/2022 Encounter Details Date Type Department Care Team Description 11/09/2022 Telephone [facility]: [facility] [address], [address] [place] [phone] Radha Martin, BRUSH MAKER-HORTICULTURAL MANAGER [address], [address] [place] [address] General Question Social History Tobacco Use Types Packs/Day Years [...] encounter Miscellaneous Notes * Telephone Encounter - Sakina Verde - 11/09/2022 3:04 PM CDT Records Request Please fax over the following records including: Kayode Milian 1965 -Radiology testing - 11/05/2022 Arterial Ultrasound was mentioned in referral but not received. *Send imaging via [employer] system to [facility] OR mail the requested imaging to [facility] [address] [place] [address] Please fax to: Sakina Th[facility] Thank you! documented in this encounter Plan of Treatment Not on file documented as of this encounter Visit Diagnoses Not on filedocumented in this encounter Additional Health Concerns Assessment Noted Time A fall risk assessment has been complete d for the patient 10/01/2022 2:46 PM CDT documented as of this encounter Care Teams Head Of Insight Relationship Specialty Start Date End Date Cayetano Bradley MD [address] [place] [address] PCP - General Family Medicine 10/01/22 documented as of this encounter
--- OUTSIDE RECORDS SUMMARY | 2022-12-10 16:27 | XMS REPORT | Clinical Summary ---
Author Author [facility] Organization [facility] Address Unknown Phone Unavailable Care Team Providers Care Tobacco Cutter Name Role Phone Cayetano Bradley MD PCP Source Comments Some departments are not documenting in the electronic medical record. If you do not see the information that you expected, contact Release of Information in the Health Information Management department at [phone] for further assistance in locating additional records.[facility] Allergies No known active allergies Medications Medication Sig Dispensed Refills Start Date End Date Status losartan(+) (COZAAR) 100 mg tablet Take one tablet by mouth daily. [address](+) (PRILOSEC) 20 mg capsule Take one capsule by mouth daily before breakfast. 0 Active lisinopril (PRINIVIL; ZESTRIL) 10 mg tablet Take one tablet by mouth daily. 0 Active cetirizine (ZYRTEC) 10 mg tablet Take one tablet by mouth daily. 0 Active acetaminophen (TYLENOL) 325 mg tablet Take 2 tablets by mouth every 4 hours as needed for Pain. 0 07/16/2017 Active ibuprofen (ADVIL) 200 mg tablet Take one tablet by mouth every 6 hours as needed for Pain. Take with food. 0 Active dexAMETHasone (DECADRON) 4 mg tablet Take one tablet by mouth. Take with food. 0 Active furosemide (LASIX) 20 mg tablet 0 11/22/2022 Active HYDROcodone/aceta minophen (NORCO) 5/325 mg tablet 0 11/26/2022 Active insulin aspart (U-100) (NOVOLOG FLEXPEN U-100 INSULIN) 100 unit/mL (3 mL) PEN 0 10/20/2022 Active ONETOUCH DELICA PLUS LANCET 33 gauge 0 10/19/2022 Active levETIRAcetam (KEPPRA) 500 mg tablet 0 11/22/2022 Active metFORMIN (GLUCOPHAGE) 500 mg tablet 0 11/22/2022 Active BD ULTRA-FINE SHORT PEN NEEDLE 31 gauge x 5/16" pen needle 0 10/20/2022 Active OLANZapine (ZYPREXA) 5 mg tablet 0 Active aspirin EC (ASPIR-LOW) 81 mg tabletIndications :PVD (peripheral vascular disease) (HCC) Take one tablet by mouth daily. 90 tablet 3 11/30/2022 Active clopiDOGreL (PLAVIX) 75 mg tabletIndications :PVD (peripheral vascular disease) (HCC) Take one tablet by mouth daily. 90 tablet 3 11/30/2022 Active amLODIPine (NORVASC) 5 mg tablet Take one tablet by mouth daily. 0 11/30/2022 Discontinued (Therapy completed) Active Problems Problem Noted Date Diagnosed Date Umbilical hernia 07/14/2017 Meckel diverticulum 07/14/2017 Right kidney mass 07/13/2017 Renal mass 05/29/2017 Overview: Presented with gross hematuria and right flank pain who was subsequently found to have a large R renal mass. No family or personal hx of malignancy. No smoking hx. Has not had cystoscopy yet. No previous abdominal surgeries. No weight loss, cough. 05/13/17: CT CAP - No findings to suggest metastatic disease in the chest. 10cm exophytic solid R renal mass concerning for renal cell carcinoma with some dilatation of the perinephric veins around the mass. No focal adenopathy. 05/16/17: Bone scan - Impression: Negative appearing baseline bone scan. Last Assessment & Plan: 51yM with hx of HTN who presented with gross hematuria was subsequently found to have a 10cm exophytic solid R renal mass concerning for cT2b renal cell carcinoma. No evidence of adenopathy or metastatic disease based off of CT Chest, bone scan. Discussed options with patient including radical nephrectomy vs. Enrollment in PROSPER RCC clinical trial (west-op Nivolumab and radical nephrectomy). - Will plan for OR on 07/06/17 for R open radical nephrectomy - Patient will consider his options regarding enrollment in PROSPER RCC clinical trial Encounters Date Type Department Care Team Description 11/30/2022 11:00 AM CDT Office Visit [facility]: [facility] [address], [address] [place] [address] Radha Martin APRN-NP PVD (peripheral vascular disease) (HCC) (Primary Dx); Atheroembolism of foot, left (HCC); Metastatic renal cell carcinoma, unspecified laterality (HCC); Primary hypertension; Hyperlipidemia, unspecified hyperlipidemia type; Diabetic vasculopathy (HCC) 11/30/2022 9:50 AM CDT - 11/30/2022 11:59 PM CDT Hospital Encounter [facility]: [facility] [address], [address] [place] [address] Radha Martin APRN-NP Discharge Disposition: Home or Self Care 11/30/2022 Travel 11/29/2022 Orders Only [facility]: [facility] [address], [address] [place] [address] Radha Martin APRN-NP PVD (peripheral vascular disease) (HCC) (Primary Dx) 11/26/2022 Telephone [facility]: [facility] [address], [address] [place] [address] Radha Martin APRN-NP Scheduling 11/09/2022 Telephone [facility]: [facility] [address], [address] [place] [address] Radha Martin APRN-NP General Question 10/05/2022 Telephone Pulmonology: [facility] [address] [facility]. [address] 4, [address] [address] Xavi Ye MD Results 10/01/2022 2:53 PM CDT Anesthesia Event Operating Room: [address] [place] [address] Betsey Rivas MD 10/01/2022 1:30 PM CDT - 10/01/2022 2:45 PM CDT Surgery Operating Room: [address] [place] [address] Negrito Pelaez MD FLEXIBLE BRONCHOSCOPY DIAGNOSTIC WITH/ WITHOUT CELL WASHING - FLEXIBLE 10/01/2022 11:25 AM CDT - 10/01/2022 5:55 PM CDT Hospital Encounter Operating Room: [address] [phone] Negrito Pelaez MD Lung nodule Discharge Disposition: Home or Self Care 10/01/2022 Travel 09/22/2022 Prep for Case Pulmonology: [facility] [address] [facility]. [address] 4, [address] [phone] Guilherme Reyes MD Lung nodule (Primary Dx); LAD (lymphadenopathy), hilar; Paratracheal lymphadenopathy 09/22/2022 Telephone Pulmonology: [facility] [address] [place] [address]. [address] 4, [address] [address] Guilherme Reyes MD Procedure (EBUS) 09/20/2022 Telephone Pulmonology: [facility] [address] [place] [address]. [address] 4, [address] [address] Guilherme Reyes MD Referral 09/11/2022 - 09/11/2022 11:59 PM CDT Hospital Encounter Imaging: [address], [address] [place] [address] Discharge Disposition: Home or Self Care from Last 3 Months Surgical History Surgery Date Site/Laterality Comments NEPHRECTOMY 07/13/2017 Abdomen/Right OPEN RIGHT RADICAL NEPHRECTOMY (MIDLINE) performed by Gil Liu MD at [facility] OR/Periop CYSTOSCOPY 07/13/2017 Bladder/N/A FLEXIBLE CYSTOSCOPY performed by Gil Liu MD at [facility] OR/Periop UMBILICAL HERNIA REPAIR 07/13/2017 Abdomen/N/A OPEN REPAIR HERNIA UMBILICAL WITH MESH performed by Johnny Alvarez MD at [facility] OR/Periop BRONCHOSCOPY 10/01/2022 Bronchus/N/A FLEXIBLE BRONCHOSCOPY DIAGNOSTIC WITH/ WITHOUT CELL WASHING - FLEXIBLE performed by Negrito Pelaez MD at [facility] OR BRONCHOSCOPY 10/01/2022 Bronchus/N/A BRONCHOSCOPY WITH TRANSBRONCHIAL LUNG BIOPSY - FLEXIBLE - SINGLE LOBE performed by Negrito Pelaez MD at [facility] OR BRONCHOSCOPY 10/01/2022 Bronchus/N/A BRONCHOSCOPY WITH TRANSBRONCHIAL NEEDLE ASPIRATION AND BIOPSY TRACHEA/ MAIN STEM/ LOBAR BRONCHUS - FLEXIBLE performed by Negrito Pelaez MD at [facility] OR BRONCHOSCOPY 10/01/2022 Bronchus/N/A BRONCHOSCOPY WITH ENDOBRONCHIAL ULTRASOUND GUIDED TRANSTRACHEAL/ TRANSBRONCHIAL SAMPLING - 3 OR MORE MEDIASTINAL/ HILAR LYMPH NODE STATIONS/ STRUCTURE - FLEXIBLE performed by Negrito Pelaez MD at [facility] OR Medical History Medical History Date Comments Hypertension Acid reflux Ulcer of esophagus Renal mass, right Diabetes mellitus (HCC) Metastatic renal cell carcinoma (HCC) Seizure (HCC) HTN (hypertension) Obesity Cancer of kidney (HCC) Lymphadenopathy Social History Tobacco Use Types Packs/Day Years [...] AM CDT Sexual Orientation Not on file Obstetrics History Last Filed Vital Signs Vital Sign Reading Time Taken Comments Blood Pressure 133/84 11/30/2022 10:53 AM CDT Pulse 67 11/30/2022 10:53 AM CDT Temperature 37 C (98.6 F) 11/30/2022 10:52 AM CDT Respiratory Rate 16 07/10/2018 1:18 PM CDT Oxygen Saturation 96% 10/01/2022 5:30 PM CDT Inhaled Oxygen Concentration - - Weight 112.9 kg (249 lb) 11/30/2022 10:52 AM CDT Height 175.3 cm (5' 9") 11/30/2022 10:52 AM CDT Body Mass Index 36.77 11/30/2022 10:52 AM CDT Plan of Treatment Health Maintenance Due Date Last Done Comments PNEUMOCOCCAL VACCINE 0-64 YRS (1 - PCV) 1972 HIV SCREENING 1981 HEPATITIS C SCREENING 1984 PHYSICAL (COMPREHENSIVE) EXAM 1984 COLORECTAL CANCER SCREENING 07/23/2011 SHINGLES RECOMBINANT VACCINE (1 of 2) 2016 COVID-19 VACCINE (3 - Moderna series) 11/13/2020, 08/21/2020 INFLUENZA VACCINE (#1) 2022 DTAP/TDAP VACCINES (2 - Td or Tdap) 10/31/202310/30 DEPRESSION SCREENING Completed 11/30/2022 Procedures Procedure Name Priority Date/Time Associated Diagnosis Comments VAS US NONINVASIVE LOWER EXT PVR Routine 11/30/2022 12:02 PM CDT PVD (peripheral vascular disease) (HCC) HC CELL BLOCK-CYTOLOGY Routine 10/01/2022 3:30 PM [...] CDT TELEMETRY STRIPS-SCAN 10/01/2022 12:[address] CHEST/ABD/PEL EXTERNAL IMAGING Routine 09/11/2022 12:00 AM CDT from Last 3 Months Results * VAS US NONINVASIVE LOWER EXT [...] the stenosis as clinically indicated. Radha Martin MATERIAL REQUISITIONER-MANAGER ERP US ORDERABLES * CYTOLOGY FNA LYMPH NODE (10/01/2022 3:30 PM CDT) Cytology [facility] [email or web address] Department of Pathology and Laboratory Medicine [address] [place] [address] Surgical Pathology Office: [phone] CYTOLOGY REPORT NAME: KAYODE MILIAN SURG PATH #: [id number] MR #: [id number] ALT ID #: BILLING #: [id number] LOCATION: [facility] DATE OF PROCEDURE: 10/01/2022 AGE: 57 SEX: M DATE RECEIVED: 10/01/2022 : 1965 TIME RECEIVED: 15:33 PHYSICIAN: XAVI YE DATE OF REPORT: 10/05/2022 COPY TO: NEGRITO PELAEZ MD DATE OF PRINTIN10/05/2022 Material Received: A: FNA Lymph Node - Station 4R History: 57-year-old man with history of 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 Pass one [...] of Pathology and Laboratory Medicine of the [facility] ([employer]) in compliance with [...] of Pathology and Laboratory Medicine of the [facility]. It has not been cleared or approved by the FDA. The FDA has determined that such clearance or approval is not necessary. Technical component performed by the [facility] at [address] [place] [address]. CLIA # [id number]. Professional component performed by [facility] ([facility]) at [address] [place] [address]. CLIA # [id number]. 10/05/2022 12:00 AM T [facility] DEPT PATH AND LAB MEDICINE LYMPH NODE SPECIMEN / Unknown 10/01/2022 3:30 PM CDT 10/01/2022 3:33 PM CDT Negrito Pelaez MD PATHOLOGY/CYTOLOGY [facility] DEPT PATH AND LAB MEDICINE [address] [facility] [place] [address], [place] * BRONCHOSCOPY (10/01/2022 2:35 PM CDT) Provation Report ___ Patient Name: Kayode Milian Procedure Date: 10/01/2022 2:35 PM CSN: [id number] Date of : 1965 Gender: Male Attending Physician: Negrito Pelaez , , [id number] ___ Procedure: Bronchoscopy Indications: Right upper lobe mass Providers: Negrito Pelaez (Doctor), Anselmo Ye (Fellow), Ramo Ordaz (Nurse), Marquis Brown, Technologist (Draw Bench Operator) Referring Physician: Referral Self Medications: General Anesthesia [...] aspiration was also performed using an Olympus [employer] Commissioni[employer]ot 21 gauge needle in the right lower [...] the entire procedure, including non-tomlinson portions. Negrito Pelaez MD Negrito Pelaez, 10/01/2022 4:03:58 PM The attending physician has [...] provider. Scanned Document PROCEDURE DUMMY ORDE RS * CT CHEST/ABD/PEL EXTERNAL IMAGING (09/11/2022 12:00 AM CDT) Narrative Scheduling, Silent - 09/20/2022 2:55 PM CDT This order has been auto finalized and does not contain a result. Radiologist Outpatient RADIOLOGY EXTERNA L ORDERABLES from Last 3 Months Advance Directives Documents on File Type Date Recorded Patient Athlete Marketing Agent Expl anation Advance Directive/DPOA 06/20/2017 11:55 AM Latest Code Status on File Code Status Date Activated Date Inactivated Comments Full Code 07/13/2017 1:30 PM 07/16/2017 12:37 PM Question Answer Comments Provider has discussed Code Status w/Patient or Family? No, discussion not necessary based on Dx Care Teams Tobacco Cutter Relationship Specialty Start Date End Date Cayetano Bradley MD [address] [place] [address] PCP - General Family Medicine 10/01/22
--- OUTSIDE RECORDS SUMMARY | 2022-12-10 16:27 | XMS REPORT | Encounter Summary ---
Author Author [facility] Organization [facility] Address Unknown Phone Unavailable Care Team Providers Care Trailer Body Assembler Name Role Phone Tommie Escobar MD PCP Unavaila ble Reason for Visit * Reason Onset Date Comments Referral 09/20/2022 Encounter Details Date Type Department Care Team Description 09/20/2022 Telephone Pulmonology: [facility] [address], [address] [phone] Guilherme Reyes MD [address] Orth[facility] [address] [place], [place] [phone] Referral Social History Tobacco Use Types Packs/Day Years [...] Telephone Encounter - Evelina Hines RN - 09/21/2022 3:[address] Guilherme Johns , patient will need to be scheduled to go straight to procedure for EBUS ABHIJIT, 1st available. Email sent to Khanh Packer with scheduling request. Evelina Hines RN * Telephone Encounter - Evelina Hines RN - 09/20/2022 4:20 PM CDT Images from the original note were not included. Referral received. Referred: On 09/20/2022 by Jax Kebede @ [facility] [phone] F) [phone] Internal Referral? No Reason: RUL nodule, hilar and paratracheal LAD Imaging: CT head: 09/13/22, CT Chest, abd, Pel 09/11/22 Imaging done at or Outside/ available date: outside / 09/20/2022 Image Impression: CT Head: CT C/A/P: Pertinent Patient History: kidney cancer, DM, HTN Pertinent Medications: losartan, metformin Sulfonator Operator: Dr. Guilherme Hines RN documented in this encounter Plan of Treatment Not on file documented as of this encounter Visit Diagnoses Not on filedocumented in this encounter Additional Health Concerns Assessment Noted Time A fall risk assessment has been complete d for the patient 07/10/2018 1:18 PM CDT documented as of this encounter Care Teams Trailer Body Assembler Relationship Specialty Start Date End Date Tommie Escobar MD PCP - General Family Medicine 05/23/17 09/30/22 documented as of this encounter
--- OUTSIDE RECORDS SUMMARY | 2022-12-10 16:27 | XMS REPORT | Encounter Summary ---
Author Author [facility] Organization [facility] Address Unknown Phone Unavailable Care Team Providers Care Homicide Investigator Name Role Phone Lexa Bradley MD PCP Reason for Visit * Reason Onset Date Comments Scheduling 11/26/2022 Encounter Details Date Type Department Care Team Description 11/26/2022 Telephone [facility]: [facility] [address] [place] [address] Radha Martin, QUALITY RN-HYDROELECTRIC STATION CHIEF [address] [place] [address] Scheduling Social History Tobacco Use Types Packs/Day Years [...] encounter Miscellaneous Notes * Telephone Encounter - Lesly Beasley RN - 11/26/2022 1:53 PM CDT I have attempted to return the call again, another voicemail has been left. * Telephone Encounter - Mukesh Ghosh - 11/26/2022 1:30 PM CDT Alycia Returned call to Lesly. * Telephone Encounter - Lesly Beasley RN - 11/26/2022 1:24 PM CDT I have attempted to return Alycia' call to discuss options, a voicemail was left requesting a call back. * Telephone Encounter - Sakina Verde - 11/26/2022 12:25 PM CDT I reached out to Patient's Spouse, Alycia. Alycia states patient will have an office visit on Tuesday,Nov [address] to have a conversation about scheduling a port being put in. Alycia also states onpatient's left foot, the 1st and 3rd toe are both purple so she would like for patient to be seen johnathon. Alycia also states they [place] away with [facility] being the closer to them so they would like to have a same day appointment for the SALLY and New Patient Office visit that is needed per referral.. Please advise scheduling. Thank you! RH * Telephone Encounter - Anitha Bell - 11/26/2022 11:57 AM CDT A nurse from Dr lexa nunez office called to check on referral. Would like for us to contact patients Alycia to schedule an appointment. Please call [phone], thank you documented in this encounter Plan of Treatment Not on file documented as of this encounter Visit Diagnoses Not on filedocumented in this encounter Additional Health Concerns Assessment Noted Time A fall risk assessment has been complete d for the patient 10/01/2022 2:46 PM CDT documented as of this encounter Care Teams Homicide Investigator Relationship Specialty Start Date End Date Lexa Bradley MD [address] [place] [address] PCP - General Family Medicine 10/01/22 documented as of this encounter
--- OUTSIDE RECORDS SUMMARY | 2022-12-10 16:27 | XMS REPORT | Encounter Summary ---
Author Author [facility] Organization [facility] Address Unknown Phone Unavailable Care Team Providers Care Wire Weaving Loom Setter Name Role Phone Cayetano Bradley MD PCP Reason for Referral * Radiology Services (Routine) - New Request Specialty Diagnoses / Procedures Referred By Conttyshawn t Referred To Contact Radiology Diagnoses PVD (peripheral vascular disease) (HCC) Procedures VAS US NONINVASIVE LOWER EXT PVR Radha Martin APRN-NP [address] [place] [address] Referral ID Status Reason Start Date Expiration Date V isits Requested Visits Authorized [id number] New Request 11/29/2022 11/30/2023 1 1 Encounter Details Date Type Department Care Team Description 11/29/2022 Orders Only [facility] [address] [place] [address] Radha Martin APRN-NP [address] [place] [address] PVD (peripheral vascular disease) (HCC) (Primary Dx) Social History Tobacco Use Types Packs/Day Years [...] on file documented as of this encounter Results * VAS US NONINVASIVE [...] the stenosis as clinically indicated. Radha Martin APRN-FULL STACK JAVA DEVELOPER US ORDERABLES documented in this encounter Visit Diagnoses Diagnosis PVD (peripheral vascular disease) (HCC)- Primary Peripheral vascular disease, unspecified PVD (peripheral vascular disease) (HCC) Peripheral vascular disease, unspecified documented in this encounter Additional Health Concerns Assessment Noted Time A fall risk assessment has been complete d for the patient 10/01/2022 2:46 PM CDT documented as of this encounter Care Teams Wire Weaving Loom Setter Relationship Specialty Start Date End Date Cayetano Bradley MD [address] [place] [address] PCP - General Family Medicine 10/01/22 documented as of this encounter
[2022-12-10] MEDS: GLYCOPYRROLATE INJ 0.2 MG/ML 2 ML VIAL IV PRN (19:24)
[2022-12-11] MEDS: GLYCOPYRROLATE INJ 0.2 MG/ML 2 ML VIAL IV PRN ×3 (02:54→23:15)
[2022-12-11] MEDS: HALOPERIDOL INJECTION 5 MG/ML VIAL IM PRN ×5 (02:54→15:55)
--- NOTE | 2022-12-11 19:09 | History & Physical-Hospitalist ---
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 He has undergone radiation and chemotherapy. He has been on high dose dexamethasone. Despite the treatment his cancer has progressed. He saw his oncologist yesterday and they recommended hospice care. He returned home and appartently tried to harm himself. He tried to get his to leave the house but she would not. He tried to get into a gun safe but his son stopped him. Police were called and came to the home. They then brought him to the ER. He since denied suicidal ideation. Source: patient Exam Limitations: no limitations Date Seen 12/11/22 Time Seen by a Provider: 10:50 Attending Physician Cayetano Bradley MD PCP Admitting Physician: Roberto Miramontes MD Attending Physician: Roberto Miramontes MD Referring Physician Date of Admission Dec 10, 2022 at 16:18 Home Medications & Allergies Home Medications Reviewed patient Home Medication Reconciliation performed by pharmacy medication reconciliations air launch weapons technician and/or nursing. Patients Allergies have been reviewed. Allergies Allergies Coded Allergies No Known Drug Allergies (Lftporuthl53/12/23) Past Qxzledl-Zwrcma-Amofjo Hx Current Status Communicates: Verbally Primary Language: Jamaican Past Medical History Brain, Lung, Kidney Did You Recieve Any Treatments: Yes What Type of Treatment Did You: Chemotherapy, Radiation, Surgical Intervention Family Medical History No Pertinent Family Hx Chart to be merged with previous chart. History reviewed from other charts. Review of Systems Constitutional: see HPI Physical Exam Physical Exam Vital Signs Vital Signs - First Documented 12/10/22 19:02 O2 Delivery Room Air Capillary Refill : Height, Weight, BMI Height: '" Weight: lbs. oz. kg; 36.89 BMI Method: General Appearance: No Apparent Distress, Obese Respiratory: Lungs Clear, No Respiratory Distress Cardiovascular: Regular Rate, Rhythm, No Murmur Gastrointestinal: Normal Bowel Sounds, Soft Extremity: Non Tender, Pedal Edema Neurologic/Psychiatric: Other (lethargic, slurred speech) Skin: Cool, Pallor Results Results/Procedures Labs Patient resulted labs reviewed. Assessment/Plan Admission Diagnosis Metastatic renal cell carcinoma to the brain Admission Status: Inpatient Order (span 2 midnights) Reason for Inpatient Admission: Uncontrolled agitation Assessment and Plan Metastatic renal cell carcinoma to the brain Agitation Anxiety Poor prognosis Hospice care Admitted [facility] for uncontrolled agitation Receiving IV Ativan, Haldol, and Morphine Add oral Ativan and Morphine Continue Zyprexa Palliative care following Diagnosis/Problems Diagnosis/Problems (1) Hospice care Status: Acute (2) Metastatic renal cell carcinoma to brain Status: Acute (3) Anxiety Status: Acute (4) Agitation Status: Acute (5) Poor prognosis Status: Acute ROBERTO MIRAMONTES MD Dec 11, 2022 19:09
[2022-12-11] MEDS: OLANZapine 5 MG ODT TABLET PO SCH (20:15)
[2022-12-11] MEDS: LORazepam ORAL CONCENTRATE 2 MG/ML 30 ML PO PRN (23:40)
[2022-12-12] MEDS: HALOPERIDOL INJECTION 5 MG/ML VIAL IM PRN ×3 (00:14→08:35)
[2022-12-12] MEDS: morphine ORAL concentrate 10 MG/0.5 ML PO PRN ×5 (07:45→23:50)
[2022-12-12] MEDS ORDERED: SALIVA SUBSTITUTE 236 ML SPRAY MM PRN (16:45)
--- NOTE | 2022-12-12 17:41 | Progress Note - Hospitalist ---
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 He has undergone radiation and chemotherapy. He has been on high dose dexamethasone. Despite the treatment his cancer has progressed. He saw his oncologist yesterday and they recommended hospice care. He returned home and appartently tried to harm himself. He tried to get his to leave the house but she would not. He tried to get into a gun safe but his son stopped him. Police were called and came to the home. They then brought him to the ER. He since denied suicidal ideation. Subjective/Events-last exam He is sleeping and appears comfortable. His family is at bedside. They are unable to take him back home. His is unable to care for him any longer. She is physically unable to care for him. Objective Exam Vital Signs Vital Signs Date Time Temp Pulse Resp B/P (MAP) Pulse Ox O2 Delivery O2 Flow Rate FiO2 12/12/22 09:00 Room Air Capillary Refill : General Appearance: No Apparent Distress, Obese Respiratory: No Respiratory Distress, Crackles Cardiovascular: Regular Rate, Rhythm, No Murmur Gastrointestinal: Normal Bowel Sounds, Soft Extremity: Normal Inspection, No Pedal Edema Skin: Warm/Dry Results/Procedures Lab Patient resulted labs reviewed. Assessment/Plan Assessment and Plan Assess & Plan/Chief Complaint Metastatic renal cell carcinoma to the brain Agitation Anxiety Poor prognosis Hospice care Admitted [facility] for uncontrolled agitation Continue oral Ativan, Zyprexa and Morphine as able IV Ativan, Morphine and IM Haldol as needed Palliative care following Will need facility placement on discharge Diagnosis/Problems Diagnosis/Problems (1) Hospice care Status: Acute (2) Metastatic renal cell carcinoma to brain Status: Acute (3) Anxiety Status: Acute (4) Agitation Status: Acute (5) Poor prognosis Status: Acute ROBERTO MIRAMONTES MD Dec 12, 2022 17:41
[2022-12-12] MEDS: LORazepam ORAL CONCENTRATE 2 MG/ML 30 ML PO PRN ×3 (19:57→23:50)
[2022-12-12] MEDS: OLANZapine 5 MG ODT TABLET PO SCH (20:33)
[2022-12-13] MEDS: LORazepam ORAL CONCENTRATE 2 MG/ML 30 ML PO PRN ×2 (00:51→01:53)
[2022-12-13] MEDS: morphine ORAL concentrate 10 MG/0.5 ML PO PRN (01:52)
[2022-12-13] MEDS: GLYCOPYRROLATE INJ 0.2 MG/ML 2 ML VIAL IV PRN (03:08)
[2022-12-13] MEDS ORDERED: SCOPOLAMINE PATCH REMOVAL TP SCH (11:59)
[2022-12-13] MEDS ORDERED: SCOPOLAMINE 1.5 MG PATCH TOP SCH (12:00)
== END 2022-12-13 12:15 | disposition expired | DRG 951 ==
LOC: 4TH 16:18
PROVIDERS: ADMIT Internal Medicine; ATTEND Internal Medicine
DX: Z51.5 Encounter for palliative care (principal); C79.31 Secondary malignant neoplasm of brain; C64.9 Malignant neoplasm of unspecified kidney, except renal pelvis; C78.00 Secondary malignant neoplasm of unspecified lung; R45.1 Restlessness and agitation; F41.9 Anxiety disorder, unspecified; Z66 Do not resuscitate; Z92.21 Personal history of antineoplastic chemotherapy; Z92.3 Personal history of irradiation